=== PATIENT | male | born 1955 | race Hispanic/Latino ===

== ENCOUNTER 2018-10-25 12:54 | Inpatient (IN) | payer OTHER, SELFPAY ==
[2018-10-25 14:12] LABS: Absolute Lymphocytes (CBC) 1.9 K/uL (0.7-4.9); Basophils % 0.4 % (0-1.3); Hematocrit 42.8 % (39.6-49.0); Lymphocytes % 21.2 % (15.3-44.8); MPV 8.7 fL (7.6-11.3); RBC Red Blood Cell Count 4.56 M/uL (4.33-5.43)
[2018-10-25 14:42] LABS: Albumin 2.8 g/dL (3.4-5.0); Bilirubin Total 0.5 mg/dL (0.2-1.0); Potassium 4.5 mmol/L (3.5-5.1); Protein, Total 6.6 g/dL (6.4-8.2)
[2018-10-25] MEDS ORDERED: NA CHLORIDE 0.9% 1,000 ML ONE ×2 (15:07→18:30)
[2018-10-25] MEDS ORDERED: INSULIN -REGULAR HUMAN 50 UNIT/0.5 ML ML ONE (15:31)
--- NOTE | 2018-10-25 15:42 | RAD REPORT ---
EXAM DESCRIPTION: CT - Pelvis W/Cont - 10/25/2018 3:01 pm CLINICAL HISTORY: Rectal abscess, rectal pain, history of rectal abscess COMPARISON: None. TECHNIQUE: Axial 5 millimeter thick images the pelvis were obtained following nonionic IV contrast. The CT scan was performed using dose optimization techniques as appropriate to a performed exam incl uding one or more of the following: Automated exposure control, adjustment of the mA and/or kV accord ing to patient size (this includes techniques or standardized protocols for targeted exams where dose is matched to indication/reason for exam) and use of iterative reconstruction technique. FINDINGS: Along the left lateral margin of the rectum anus junction there are 2 small low-density co llections 5 mm and 7 mm in size. There is a narrow track that runs in the superficial perineum just l eft of midline from the anus anteriorly into the junction of the perineum and posterior scrotum. At t his site there is a 5 centimeter x 4 centimeter abscess. There is thickening of the posterior scrotal wall at the junction with the perineum. This does not fully involved the scrotal sac. No significant edematous/ inflammatory stranding in the fat of the perineum. No extension into the peritoneal or re troperitoneal spaces along the pelvic floor. Prostate gland is enlarged and heterogeneous in enhancement. No clearly defined prostatic mass. CT im aging is very limited regarding prostate mass assessment. No seminal vesicle abnormality. Urinary con dder is unremarkable. Prominent stool volume distends the rectum. There is moderately large stool volume throughout the neal ged portions of the colon. The appendix is normal. Imaged small bowel loops are normal. No peritoneal or retroperitoneal free air or free fluid. No additional inflammatory stranding. IMPRESSION: There is a 5 centimeter abscess in the posterior base of the scrotum at the junction wit h the perineum. A small sinus tract extends along the superficial margin of the perineum slightly left of midline ext ending posteriorly to the rectum venous junction. At the rectal anal junction there are 2 small low-d ensity collections poorly defined measuring 5 mm and 7 mm in size. These are probably small perirecta l abscesses. Patient has history detailed of prior rectal abscess. Age of the scrotal abscess is unknown. This cou ld be a chronic sinus tract extending into the scrotum.
--- NOTE | 2018-10-25 16:03 | EDPHYS ---
Physician Documentation [facility] Name: Sage Guaman Jr Age: 62 yrs Sex: Male : 1955 Arrival Date: 10/25/2018 Time: 12:59 Bed 13 Private MD: ED Physician Jackson Anthony HPI: 10/25 13:27 This 62 yrs old Male presents to ER via Ambulatory with complaints of Abscess. jmm 13:27 the patient presents with a swollen area of the groin. Onset: The symptoms/episode jmm began/occurred gradually, 3 day(s) ago. Possible cause(s): unknown. This is a 62 year old male with a history of dm, htn that presents to the ED with complaints of swelling below his scrotum for the past 3 days. Patient states having swelling similar in the past with drainage but states this episode is increased. Denies fever, denies chills. Historical: - Allergies: 13:04 No Known Allergies; ss - Home Meds: 13:04 none Pt reports he is supposed to be taking medicaiton for diabetes and HTN, but has ss not in a long time [Active]; - PMHx: 13:04 Diabetes - NIDDM; Hypertension; ss - PSHx: 13:04 I\T\D; ss - Immunization history:: Adult Immunizations unknown. - Social history:: Smoking status: Patient uses tobacco products, smokes one pack cigarettes per day. - Ebola Screening: : Patient denies exposure to infectious person Patient denies travel to an Ebola-affected area in the 21 days before illness onset. ROS: 13:27 Constitutional: Negative for fever, chills, and weight loss, Cardiovascular: Negative jmm for chest pain, palpitations, and edema, Respiratory: Negative for shortness of breath, cough, wheezing, and pleuritic chest pain. 13:27 Skin: Positive for abscess. 13:27 All other systems are negative. Exam: 13:27 Constitutional: This is a well developed, well nourished patient who is awake, alert, jmm and in no acute distress. Head/Face: atraumatic. Eyes: EOMI, no conjunctival erythema appreciated ENT: Moist Mucus Membranes Neck: Trachea midline, Supple Chest/axilla: Normal chest wall appearance and motion. Cardiovascular: Regular rate and rhythm. No edema appreciated Respiratory: Normal respirations, no respiratory distress appreciated Abdomen/GI: Non distended, soft 13:27 Skin: ;eft perineal swelling appreciated, area is fluctuant. No surrounding erythema or induration appreciated. 13:27 Neuro: Orientation: is normal, Mentation: is normal, Memory: is normal. 13:27 Psych: Behavior/mood is pleasant, cooperative. Vital Signs: 13:04 BP 137 / 69; Pulse 86; Resp 16; Temp 98.6(TE); Pulse Ox 100% on R/A; Weight 74.84 kg; ss Height 5 ft. 10 in. (177.80 cm); Pain 10/10; 15:30 BP 162 / 78; Pulse 82; Resp 18; Pulse Ox 97% on R/A; aj1 16:30 BP 145 / 72; Pulse 88; Resp 18; Pulse Ox 96% on R/A; aj1 17:48 BP 150 / 74; Pulse 74; Resp 18; Temp 97.3; Pulse Ox 95% on R/A; aj1 13:04 Body Mass Index 23.67 (74.84 kg, 177.80 cm) ss MDM: 13:27 Patient medically screened. [facility] 15:59 Data reviewed: vital signs, nurses notes. Counseling: I had a detailed discussion with nhan the patient and/or guardian regarding: the historical points, exam findings, and any diagnostic results supporting the discharge/admit diagnosis, lab results, radiology results, the need for further work-up and treatment in the hospital, to return to the emergency department if symptoms worsen or persist or if there are any questions or concerns that arise at home. ED course: I discussed the patient with Dr. Zamudio whom accepted admission to Dr. Joiner service. I discussed the patient with Dr. Reinoso whom will consult on the admission. . 10/25 13:35 Order name: CBC with Diff; Complete Time: 14:14 [facility] 10/25 13:35 Order name: CMP; Complete Time: 14:54 [facility] 10/25 13:35 Order name: Procalcitonin; Complete Time: 14:54 [facility] 10/25 13:35 Order name: Blood Culture Adult (2) [facility] 10/25 13:35 Order name: Lactate; Complete Time: 14:54 [facility] 10/25 15:16 Order name: Glucose, Ancillary Testing; Complete Time: 15:16 EDMS 10/25 13:35 Order name: Saline Lock; Complete Time: 14:07 [facility] 10/25 13:35 Order name: CT Pelvis w cont; Complete Time: 15:43 [facility] Administered Medications: Discontinued: Zosyn 3.375 grams IVPB once over 60 mins; (mix in NS 100 mL) 15:20 Drug: NS 0.9% 1000 ml Route: IV; Rate: 1 bolus; Site: right antecubital; [facility] 16:13 Follow up: IV Status: Completed infusion; IV Intake: 1000ml [facility] 15:21 Drug: Insulin Regular Human 5 units {Co-Signature: em (Toni Elizalde LVN).} Route: IVP; [facility] Site: left antecubital; 16:12 Follow up: Response: No adverse reaction; Blood pressure is lowered [facility] 16:12 Drug: Zosyn 3.375 grams Route: IVPB; Infused Over: 60 mins; Site: left antecubital; [facility] 16:18 Follow up: IV Status: Order to discontinue infusion; IV Intake: 5ml [facility] 16:18 Not Given (Physician Discretion): LevaQUIN 750 mg 150 ml IVPB once over 90 mins [facility] Point of Care Testing: Blood Glucose: 15:14 Blood Glucose: 315 mg/dL; dh3 Ranges: Critical Glucose Levels:Adult <50 mg/dl or >400 mg/dl <40 mg/dl or >180 mg/dl Disposition: 10/26 09:48 Co-signature as Attending Physician, Jackson Anthony MD I agree with the assessment and amaya plan of care. Disposition: 10/25/18 16:01 Hospitalization ordered by Anthony Joiner for Observation. Preliminary diagnosis are Perineal Abscess, Perirectal Abscess. - Bed requested for Telemetry/MedSurg (observation). - Status is Observation. aj1 - Condition is Stable. - Problem is new. - Symptoms are unchanged. UTI on Admission? No Signatures: Dispatcher [employer] [facility] Dali Summers RN RN aj1 Jackson Anthony MD MD cha Mickail, Joel, PA PA jmm Smirch, Shelby, RN RN Anthony Pineda RN ANDREW [facility] Toni Elizalde LVN em Corrections: (The following items were deleted from the chart) 07/26 17:13 16:01 Hospitalization Ordered by Anthony Joiner DO for Observation. Preliminary ja1 diagnosis is Perineal Abscess; Perirectal Abscess. Bed requested for Telemetry/MedSurg (observation). Status is Observation. Condition is Stable. Problem is new. Symptoms are unchanged. UTI on Admission? No. jmm 18:04 17:13 10/25/2018 16:01 Hospitalization Ordered by Anthony Joiner DO for Observation. aj1 Preliminary diagnosis is Perineal Abscess; Perirectal Abscess. Bed requested for Telemetry/MedSurg (observation). Status is Observation. Condition is Stable. Problem is new. Symptoms are unchanged. UTI on Admission? No. ja1
--- NOTE | 2018-10-25 16:03 | ER ---
Nurse's Notes [facility] Name: Sage Guaman Jr Age: 62 yrs Sex: Male : 1955 Arrival Date: 10/25/2018 Time: 12:59 Bed 13 Private MD: Diagnosis: Perineal Abscess;Perirectal Abscess Presentation: 10/25 12:58 Presenting complaint: Patient states: abscess to scrotal area that began 3-4 days ago. ss Pt states, "This has happened before, so I know how to take care of it, but this is my third day, and usually it pops by now, but it hasn't so I think it's going in rather than out." Denies fever. Transition of care: patient was not received from another setting of care. Onset of symptoms was October 22, 2018. Risk Assessment: Do you want to hurt yourself or someone else? Patient reports no desire to harm self or others. Initial Sepsis Screen: Does the patient meet any 2 criteria? No. Patient's initial sepsis screen is negative. Does the patient have a suspected source of infection? No. Patient's initial sepsis screen is negative. Care prior to arrival: None. 12:58 Method Of Arrival: Ambulatory ss 12:58 Acuity: MARITZA 3 ss Historical: - Allergies: 13:04 No Known Allergies; ss - Home Meds: 13:04 none Pt reports he is supposed to be taking medicaiton for diabetes and HTN, but has ss not in a long time [Active]; - PMHx: 13:04 Diabetes - NIDDM; Hypertension; ss - PSHx: 13:04 I\\T\\D; ss - Immunization history:: Adult Immunizations unknown. - Social history:: Smoking status: Patient uses tobacco products, smokes one pack cigarettes per day. - Ebola Screening: : Patient denies exposure to infectious person Patient denies travel to an Ebola-affected area in the 21 days before illness onset. Screenin:45 Abuse screen: Denies threats or abuse. Denies injuries from another. Nutritional aj1 screening: No deficits noted. Tuberculosis screening: No symptoms or risk factors identified. 17:52 Fall Risk None identified. aj1 Assessment: 13:45 General: Appears in no apparent distress. uncomfortable, Behavior is calm, cooperative, aj1 appropriate for age. Pain: Complains of pain in scrotum Pain currently is 10 out of 10 on a pain scale. Neuro: Level of Consciousness is awake, alert, obeys commands, Oriented to person, place, time, situation. Cardiovascular: Patient's skin is warm and dry. Respiratory: Airway is patent Respiratory effort is even, unlabored, Respiratory pattern is regular, symmetrical. GI: No signs and/or symptoms were reported involving the gastrointestinal system. : No signs and/or symptoms were reported regarding the genitourinary system. EENT: No signs and/or symptoms were reported regarding the EENT system. Derm: Abscess located on scrotum. Musculoskeletal: No signs and/or symptoms reported regarding the musculoskeletal system. Circulation, motion, and sensation intact. 14:45 Reassessment: Patient appears in no apparent distress at this time. No changes from aj1 previously documented assessment. Patient and/or family updated on plan of care and expected duration. Pain level reassessed. Patient is alert, oriented x 3, equal unlabored respirations, skin warm/dry/pink. 15:45 Reassessment: Patient and/or family updated on plan of care and expected duration. Pain aj1 level reassessed. General: Appears in no apparent distress. comfortable, Behavior is calm, cooperative, appropriate for age. Neuro: Level of Consciousness is awake, alert, obeys commands, Oriented to person, place, time, situation. Cardiovascular: Patient's skin is warm and dry. Respiratory: Airway is patent Respiratory effort is even, unlabored, Respiratory pattern is regular, symmetrical. Musculoskeletal: No signs and/or symptoms reported regarding the musculoskeletal system. Circulation, motion, and sensation intact. 16:45 Reassessment: Patient appears in no apparent distress at this time. No changes from aj1 previously documented assessment. Patient and/or family updated on plan of care and expected duration. Pain level reassessed. Patient is alert, oriented x 3, equal unlabored respirations, skin warm/dry/pink. 17:45 Reassessment: Patient appears in no apparent distress at this time. No changes from aj1 previously documented assessment. Patient and/or family updated on plan of care and expected duration. Pain level reassessed. Patient is alert, oriented x 3, equal unlabored respirations, skin warm/dry/pink. Vital Signs: 13:04 BP 137 / 69; Pulse 86; Resp 16; Temp 98.6(TE); Pulse Ox 100% on R/A; Weight 74.84 kg; Height 5 ft. 10 in. (177.80 cm); Pain 10/10; 15:30 BP 162 / 78; Pulse 82; Resp 18; Pulse Ox 97% on R/A; aj1 16:30 BP 145 / 72; Pulse 88; Resp 18; Pulse Ox 96% on R/A; aj1 17:48 BP 150 / 74; Pulse 74; Resp 18; Temp 97.3; Pulse Ox 95% on R/A; aj1 13:04 Body Mass Index 23.67 (74.84 kg, 177.80 cm) ED Course: 12:59 Patient arrived in ED. as 13:01 Triage completed. 13:04 Arm band placed on left wrist. 13:12 Dali Summers, ANDREW is Primary Nurse. 1 13:20 Cedrick Barragan PA is PHCP. [facility] 13:20 Jackson Anthony MD is Attending Physician. [facility] 13:48 Patient has correct armband on for positive identification. aj1 13:48 No provider procedures requiring assistance completed. aj1 14:00 Initial lab(s) drawn, by vt, sent to lab. First set of blood cultures drawn by vt. 3 Inserted saline lock: 20 gauge in right forearm, using aseptic technique. Blood collected. 14:15 Second set of blood cultures drawn by vt. 3 15:03 CT Pelvis w cont In Process Unspecified. EDMS 16:00 Anthony Joiner DO is Hospitalizing Provider. [facility] 17:52 Patient admitted, IV remains in place. aj1 17:53 Report given to ANDREW Valadez on 2nd floor. aj1 Administered Medications: Discontinued: Zosyn 3.375 grams IVPB once over 60 mins; (mix in NS 100 mL) 15:20 Drug: NS 0.9% 1000 ml Route: IV; Rate: 1 bolus; Site: right antecubital; aj1 16:13 Follow up: IV Status: Completed infusion; IV Intake: 1000ml aj1 15:21 Drug: Insulin Regular Human 5 units {Co-Signature: em (Toni Elizalde LVN).} Route: IVP; [facility] Site: left antecubital; 16:12 Follow up: Response: No adverse reaction; Blood pressure is lowered aj1 16:12 Drug: Zosyn 3.375 grams Route: IVPB; Infused Over: 60 mins; Site: left antecubital; aj1 16:18 Follow up: IV Status: Order to discontinue infusion; IV Intake: 5ml aj1 16:18 Not Given (Physician Discretion): LevaQUIN 750 mg 150 ml IVPB once over 90 mins aj Point of Care Testing: Blood Glucose: 15:14 Blood Glucose: 315 mg/dL; 3 Ranges: Intake: 16:13 IV: 1000ml; Total: 1000ml. aj1 16:18 IV: 5ml; Total: 1005ml. aj1 Outcome: 16:01 Decision to Hospitalize by Provider. nhan 17:53 Admitted to Med/surg accompanied by tech, via stretcher, with chart. [facility] 17:53 Condition: good 17:53 Discharge instructions given to patient, Instructed on the need for admit. 18:04 Patient left the ED. aj Signatures: Dispatcher [employer] Dali Cole RN RN [facility] Cedrick Barragan PA PA jmm Martinez, Amelia as Smirch, Shelby, Katharine Hadley RN count includes the [facility] Toni Elizalde BACTERIOLOGIST MEDICAL
[2018-10-25] MEDS ORDERED: Levofloxacin 750mg IV 750 MG/150 ML BAG IV ONE (16:24)
[2018-10-25] MEDS ORDERED: PIPER/TAZO/NS 3.375gm 3.375 GM/100 ML BAG ONE (16:24)
--- NOTE | 2018-10-25 16:59 | P.HP ---
Certification for Inpatient Patient admitted to: Inpatient With expected LOS: >2 Midnights Patient will require the following post-hospital care: Home Health Services Practitioner: I am a practitioner with admitting privileges, knowledge of patient current condition, hospital course, and medical plan of care. Services: Services provided to patient in accordance with Admission requirements found in Title 42 Section 412.3 of the Code of Federal Regulations Patient History Date of Service: 10/25/18 Primary Care Provider: None Reason for admission: Perirectal abscess History of Present Illness: 62-year-old male presented to emergency room with worsening Perianal and perirectal abscesses. Patient with history of diabetes mellitus type 2, [id number] and tobacco abuse. Patient reports swelling, pain and erythema to the left perianal region. Patient with history of abscess to the area. He had it debrided multiple years ago. He was not able to get it under control with topical agents. He came to the ER for further evaluation. In the ER patient evaluated. White count 9.1, hemoglobin 14.2. Platelet count 219. Sodium 137, potassium 4.5. BUN of 16, creatinine 1.0 with a GFR 73. Glucose elevated at 476. Lactic acid 2.4, pro calcitonin negative. CT scan revealed 5 cm abscess in the posterior base of the scrotum at the junction of the perineum. A small sinus tract extends along the superficial margin of the perineum slightly left of midline extending posteriorly to the rectum venous the junction. At the rectal anal junction there is 2 small low density collections poorly defined measuring 5 mm and 7 mm in size. These are likely small perirectal abscesses. Patient was started on antibiotic therapy. Patient admitted for further evaluation and treatment. ER has contacted surgery. When I saw all the patient ER, he appeared stable. Pain under control. Allergies No Known Allergies Allergy (Verified 02/14/12 01:59) Home medications list reviewed: Yes Home Medications: Lisinopril 5 mg PO DAILY 02/14/12 Sitagliptin Phosphate [Januvia] 100 mg PO DAILY 02/14/12 Ciprofloxacin HCl [Cipro] 500 mg PO Q12H #14 tablet 02/17/12 Glimepiride 2 mg PO BID #60 tablet 02/17/12 Hydrocodone/Acetaminophen [Vicodin 5-500 Tablet] 1 - 2 each PO Q4HP PRN #40 tablet 11/17/12 Metformin HCl 500 mg PO BID #60 tablet 02/17/12 - Past Medical/Surgical History Diabetic: Yes -: Diabetes mellitus type 2, non-insulin dependent -: Tobacco abuse -: I and D of rectal abscess -: Surgery to the right hand Psychosocial/ Personal History: Patient is . Patient lives with son. He is originally from [place]. - Family History Family History: Reviewed- Non-Contributory - Social History Smoking Status: Heavy Tobacco smoker (>10 cigarettes/day) Counseled patient to stop smoking for: less than 10 minutes Smoking therapy provided: Yes Patient receptive to therapy: Yes Alcohol use: Yes CD- Drugs: No Caffeine use: Yes Place of Residence: Home Review of Systems General: As per HPI Eyes: Unremarkable ENT: Unremarkable Respiratory: Unremarkable Cardiovascular: Unremarkable Gastrointestinal: Unremarkable Genitourinary: As per HPI Musculoskeletal: As per HPI Integumentary: As per HPI Neurological: Unremarkable Lymphatics: Unremarkable Physical Examination - Physical Exam General: Alert, In no apparent distress, Oriented x3, Cooperative HEENT: Atraumatic, Normocephalic, PERRLA, Mucous membr. moist/pink Neck: Supple, No Thyromegaly Respiratory: Clear to auscultation bilaterally, Normal air movement Cardiovascular: Normal pulses, Regular rate/rhythm Gastrointestinal: Normal bowel sounds, Soft and benign, Non-distended, No tenderness, No masses, No rebound, No guarding Musculoskeletal: No erythema, No tenderness, No warmth Integumentary: Other (5 cm abscess to the posterior base of the scrotum at the junction with the perineum. Area is slightly erythematous. Pain with palpation noted. Induration noted.) Neurological: Normal speech, Normal strength at 5/5 x4 extr, Normal tone, Normal affect - Studies Laboratory Data (last 24 hrs) 10/25/18 14:00: Sodium 137, Potassium 4.5, BUN 16, Creatinine 1.03, Glucose 476 H*, Total Bilirubin 0.5, AST 6 L, ALT 12, Alkaline Phosphatase 123 H 10/25/18 14:00: WBC 9.1, Hgb 14.2, Hct 42.8, Plt Count 219 Assessment and Plan - Plan Impression: 5 cm abscess to the posterior base of the scrotum at the junction of the perineum along with 2 small perirectal abscesses at the rectal anal junction measuring 5 mm and 7 mm Diabetes mellitus type 2, non-insulin dependent, uncontrolled with hyperglycemia Tobacco abuse Plan: 5 cm abscess to the posterior base of the scrotum at the junction of the perineum along with 2 small perirectal abscesses at the rectal anal junction measuring 5 mm and 7 mm: Patient will be admitted for further evaluation and treatment. Will start IV antibiotic therapy with vancomycin and cefepime. Will have pharmacy monitor and adjust medication. Surgery consulted. Case discussed with surgery. Will keep the patient NPO after midnight as patient will require surgical intervention. Will provide medication for pain will start DVT prophylaxis-Lovenox. Continue with current treatment at this time. Anticipate discharge in the next 2-3 days pending clinical improvement. Patient and family will need to be taught wound care prior to discharge. Anticipate need for home health at discharge. Diabetes mellitus type 2, non-insulin dependent, uncontrolled with hyperglycemia : Will check A1c. Will monitor Accu-Cheks. Will provide sliding scale. Will start basal insulin-Lantus 20 units subcu twice daily for better diabetic control. Restart home medication of metformin. Will need to adjust medication appropriately for better diabetic control. Tobacco abuse: Continue with cessation education. Will provide nicotine patch as needed. Discharge Plan: Home Plan to discharge in: 72 Hours - Advance Directives Does patient have a Living Will: No Does patient have a Durable POA for Healthcare: No - Code Status/Comfort Care Code Status Assessed: Yes (Patient is full code) Time Spent Managing Pts Care (In Minutes): 55
[2018-10-25] MEDS: NA CHLORIDE 0.9% 1,000 ML IV SCH (17:50)
[2018-10-25] MEDS ORDERED: D50W 25 GM/50 ML SYRINGE IV PRN (18:07)
[2018-10-25] MEDS ORDERED: TRAMADOL HCL 50 MG TAB PO PRN (18:07)
[2018-10-25] MEDS ORDERED: GLUCAGON 1 MG/VIAL IM PRN (18:07)
[2018-10-25] MEDS ORDERED: ONDANSETRON 4 MG/2 ML VIAL IV PRN (18:07)
[2018-10-25] MEDS ORDERED: ACETAMINOPHEN 500 MG TAB PO PRN (18:07)
[2018-10-25] MEDS: METFORMIN HCL 500 MG TAB PO SCH (18:29)
[2018-10-25] MEDS: NICOTINE 21 MG/PAT TD SCH (18:58)
[2018-10-25 20:46] LABS: Urine Appearance CLEAR; Urine Bilirubin NEGATIVE (NEG); Urine Blood TRACE (NEG); Urine Color YELLOW; Urine Glucose 3+ (NEG); Urine Protein NEGATIVE (NEG); Urine Specific Gravity >=1.030 (1.005-1.030); Urine pH 6.5 (5.0-7.0)
[2018-10-25 20:55] LABS: Urine Microscopic Reflex ORDER UMIC
[2018-10-25 20:58] LABS: Urine Bacteria NONE SEEN /HPF (NONE SEEN); Urine Culture Reflex Order NOT NEEDED; Urine RBC <5 /HPF (NONE SEEN)
[2018-10-25] MEDS ORDERED: CEFEPIME 1 GM/VIAL IV SCH (21:00)
[2018-10-25] MEDS ORDERED: VANCOMYCIN 1.25 GM in NA CHLORIDE 0.9% 250 ML IVPB SCH (21:00)
[2018-10-25] MEDS: CEFEPIME/SWI 1gm 10 ML IV SCH (21:17)
[2018-10-25] MEDS: INSULIN -REGULAR HUMAN 50 UNIT/0.5 ML ML SQ SCH (21:21)
[2018-10-25] MEDS: ENOXAPARIN 40 MG/0.4 ML SQ SCH (21:22)
[2018-10-25] MEDS: INSULIN GLARGINE 100 UNITS/ML SQ SCH (21:22)
[2018-10-25] MEDS: HYDROCODONE/APAP 7.5/325 MG TAB PO PRN (21:24)
[2018-10-26] MEDS: NA CHLORIDE 0.9% 1,000 ML IV SCH ×3 (03:07→20:03)
[2018-10-26 04:59] LABS: Absolute Lymphocytes (CBC) 3.1 K/uL (0.7-4.9); Basophils % 0.9 % (0-1.3); Hematocrit 39.6 % (39.6-49.0); Lymphocytes % 30.7 % (15.3-44.8); MPV 8.4 fL (7.6-11.3); RBC Red Blood Cell Count 4.19 M/uL (4.33-5.43)
[2018-10-26 05:17] LABS: BUN Blood Urea Nitrogen 15 mg/dL (7-18); Bicarbonate 27 mmol/L (21-32); Glucose Level 165 mg/dL (74-106); Magnesium 1.8 mg/dL (1.8-2.4); Potassium 3.8 mmol/L (3.5-5.1); Sodium Level 141 mmol/L (136-145)
[2018-10-26] MEDS ORDERED: POTASSIUM CL SA 10 MEQ TAB PO ONE (06:30)
[2018-10-26] MEDS ORDERED: KCL 20 MEQ/100 mL IVPB 20 MEQ/100 ML BAG IV SCH (07:00)
[2018-10-26] MEDS: INSULIN -REGULAR HUMAN 50 UNIT/0.5 ML ML SQ SCH ×4 (07:30→20:04)
[2018-10-26] MEDS: METFORMIN HCL 500 MG TAB PO SCH ×2 (08:00→16:20)
[2018-10-26] MEDS: ENOXAPARIN 40 MG/0.4 ML SQ SCH (09:00)
[2018-10-26] MEDS: NICOTINE 21 MG/PAT TD SCH ×2 (09:00→11:54)
[2018-10-26] MEDS: CEFEPIME/SWI 1gm 10 ML IV SCH ×2 (09:07→20:04)
[2018-10-26] MEDS: INSULIN GLARGINE 100 UNITS/ML SQ SCH ×2 (09:08→20:04)
[2018-10-26] MEDS ORDERED: FENTANYL CITR 100 MCG/2 ML ONE (10:07)
[2018-10-26] MEDS ORDERED: PROPOFOL 200 MG/20 ML VIAL IV ONE (10:07)
[2018-10-26] MEDS ORDERED: MIDAZOLAM HCL 2 MG/2 ML INJ ONE (10:07)
[2018-10-26] MEDS ORDERED: ONDANSETRON 4 MG/2 ML VIAL ONE (10:07)
[2018-10-26] MEDS ORDERED: LIDOCAINE 1% MPF 5 ML VIAL ONE (10:07)
[2018-10-26] MEDS ORDERED: KETOROLAC 30 MG/ML INJ ONE (10:08)
[2018-10-26] MEDS ORDERED: NA CHLORIDE 0.9% 1,000 ML ONE (10:45)
--- NOTE | 2018-10-26 10:49 | P.BOP ---
Preoperative diagnosis: Perirectal.Perianal,Perineal abscess Postoperative diagnosis: same Primary procedure: EUA, ANoscopy, rigid proctoscopy, Secondary procedure: incision and drainage of perirectal abscess 12x5 cm Estimated blood loss: <10cc Specimen: pus and tissue Findings: pus Anesthesia: General Transferred to: Recovery Room Condition: Good
[2018-10-26] MEDS: HYDROCODONE/APAP 7.5/325 MG TAB PO PRN ×2 (11:53→22:02)
[2018-10-26] MEDS: VANCOMYCIN 1.25 GM in NA CHLORIDE 0.9% 250 ML IVPB SCH ×2 (12:29→20:03)
--- NOTE | 2018-10-26 12:56 | CON ---
Date of Consultation: 10/26/2018 Diagnoses: Perianal and perineal abscess. History Of Present Illness: This is the case of a 62-year-old patient, who came to us with a periana l and perineal bulging tenderness. He has history of diabetes, has history of abscess in that area b efore, we never found the reason for it. He states it just happened on its own. He does not remembe r any trauma. Does not remember any constipation, any dysuria, hematochezia, or melena. Patient mauro s not remember his previous colonoscopy, although he was advised to do so. Review of Systems: Ten points otherwise unremarkable. Allergies: NONE. Medications: 1.Lisinopril. 2.Januvia. 3.Cipro. 4.Glimepiride. 5.Vicodin. 6.Metformin. Although, he admitted not been really taking them all the time. Past Surgical History: Right hand surgery, I and D of rectal and perineal abscess before. Family History: Noncontributory. Social History: Patient smokes 10 cigarettes a day. He does not drink alcohol. Patient advised smo sabina cessation. Physical Examination: General: Patient is awake and alert. HEENT: Pupils are equal and reactive, anicteric. Neck: Supple. Chest: Clear. Abdomen: Soft and depressible. No guarding or rebound. The area of the perineum and perianal regio n is tender with bulging present. Cannot be examined here on bedside, thus we are going to do examin ation under anesthesia. The area of the base of the scrotum partially involved with this, although t he scrotum itself does not seem to be involved. Rectal: Deferred by the patient due to discomfort. Extremities: Good capillary refill. Laboratory Data: WBC count is 10.2, hemoglobin of 13.6, and platelets of 204. Potassium of 3.8 and creatinine is 0.65. CAT scan of the pelvis interpreted by Dr. Barertt as a 5-cm abscess in the poste rior base of the scrotum and the junction with the perineum. Small sinus tracking continues through the perineum is slightly in the midline near the area of the rectal anal junction. Assessment: A 62-year-old patient with perirectal, perianal, and perineal abscess. Etiology of that is unknown. He was advised the importance of avoiding trauma, getting his diabetes under control. Etiology of the abscess is hard to say. I am not sure exactly whether this is coming from the anus o r the rectum and go anteriorly or the opposite. At this moment, it is difficult to say, but we have to drain the pus from that area. The benefits, alternatives, and risks of EUA, anoscopy, proctoscopy , and incision and drainage of perianal, perirectal, and perineal abscess fully explained to the arslan ent, which include but are not limited to infection, bleeding, damage to adjacent structures as compl ication, recurrence, GA, and even . He also understands this may not relieve the symptoms. He might need more than one surgical intervention and he will require wound care. BENITEZ/SAMEERA Voice ID: [id number] Report ID: [id number]
--- NOTE | 2018-10-26 13:11 | PN ---
Date of Progress Note: 10/26/2018 Subjective: The patient seen and examined. Chart reviewed and case discussed with RN. The patient states his pain is better controlled. He is currently n.p.o. in anticipation of surgery. Medications: List reviewed. Physical Examination: Vital Signs: Temperature 98.9, heart rate 69, blood pressure 153/74, respirations 20, O2 of 99% on r oom air. General: Awake, alert, oriented x3. Elderly male, somewhat ill appearing. CV: S1, S2. No murmurs. Peripheral pulses present. Respiratory: Moving air well bilaterally. No wheezing. Gastrointestinal: Abdomen is soft, nontender, nondistended. Positive bowel sounds. Extremities: No clubbing, cyanosis, or edema. Neurologic: Nonfocal. Skin: The patient has abscess in the perineum close to the scrotum around the left. Tenderness to p alpation. Laboratory Data: Sodium 141, potassium 3.8, chloride 108, CO2 of 27, BUN 15, creatinine 0.65, glucos e 165, calcium 7.8, magnesium 1.8. WBC 10.2, H and H of 13.6 and 39.6, platelets 202. Assessment: A 62-year-old male with: 1.Perineal abscess. The patient has multiple abscesses along the base of the scrotum, perineum, and the rectoanal junction. The patient is going for surgery today by Dr. Reinoso. Continue with IV a ntibiotics. Follow up on cultures. The patient will likely need wound care postop and at home. 2.Diabetes mellitus type 2, non-insulin dependent, with hyperglycemia. Hemoglobin A1c pending. We will continue home dose of insulin, which has been adjusted, and sliding scale as needed. The patien t has been counseled regarding tight control of his diabetes to help heal the wound quicker postopera tively. 3.Nicotine dependence with cigarette smoking, continuous. The patient has been counseled. Plan: Anticipate surgery. Discharge once clinically improved in the next 24 to 48 hours postop. Wi ll need to set up home health with wound care. SA/MODL Voice ID: [id number] Report ID: [id number]
[2018-10-26] MEDS ORDERED: MAGNESIUM SULFATE 1 gm IVPB 1 GM/100 ML BAG IV ONE (16:30)
[2018-10-26 17:57] VITALS: BMI 20.7
--- NOTE | 2018-10-26 21:10 | OP ---
Date of Procedure: 10/26/2018 Surgeon: Neno Reinoso MD Postoperative Diagnoses: Perianal, perirectal, and perineal abscess; diabetes. Postoperative Diagnoses: Perianal, perirectal, and perineal abscess; diabetes. Procedures: Examination under anesthesia, anoscopy, rigid proctoscopy, incision and drainage of concepcion rectal abscess. It is 12 x 5 cm. Anesthesia: General plus local. Indications: This is a case of a 62-year-old patient, who comes to us with perineal bulging with CAT scan finding multiple abscesses, large. The patient was fully explained the benefits and risks of a nina procedure, which include but are not limited to infection, bleeding, damage to adjacent structur es as complication, anal stricture, anal incontinence, bowel perforation, recurrence, AK, and even de ath. He also understands this may not relieve the symptoms. He might need more than one surgical in tervention. He understood, signed a consent. He understands he will need wound care. He signed a c onsent. Description Of Procedure: The patient was brought to the operating room, placed in supine position. Anesthesia was given without complication. Perineal area was prepped and draped in the usual steril e fashion after placing the patient in lithotomy position. A time-out was called. The patient had m ultiple areas that looked like scarring from the past. I am not sure if this was just part of a fistu la or just hydradenitis or any other pathology, but the abscesses were large at that moment with foul smelling purulent discharge that was hard for us to find the etiology of this. Endoscopy was done a fter a rectal examination. We could not see any specific fistula, although we noticed the patient to have perirectal and perianal that connected to the perineal abscess and when put all this together, they were about 12 x 5 cm extensions and they connect each other. Re-proctoscopy did not show once a gain more than about 7 cm, since before that patient had too much stool for us to even identify anyth ing that may be connected to this. An incision was made over the perineal and perianal region to anthony in the perirectal abscess, perineal abscess, and the perianal abscess. Once again, they connected un derneath, there was foul purulent discharge, although the tissue underneath seemed to be healthy. Al l of the necrotic tissue was removed. The area was irrigated. Cultures were done, packed with iodof orm packing. The patient tolerated the procedure well. After putting local anesthetic, patient was sent to Recovery in stable condition. BENITEZ/SAMEERA Voice ID: [id number] Report ID: [id number]
[2018-10-27 05:04] LABS: Absolute Lymphocytes (CBC) 3.1 K/uL (0.7-4.9); Basophils % 0.3 % (0-1.3); Hematocrit 38.5 % (39.6-49.0); Lymphocytes % 32.1 % (15.3-44.8); MPV 8.3 fL (7.6-11.3); RBC Red Blood Cell Count 4.01 M/uL (4.33-5.43)
[2018-10-27 05:17] LABS: BUN Blood Urea Nitrogen 11 mg/dL (7-18); Bicarbonate 26 mmol/L (21-32); Glucose Level 99 mg/dL (74-106); Potassium 3.7 mmol/L (3.5-5.1); Sodium Level 143 mmol/L (136-145)
[2018-10-27] MEDS: INSULIN -REGULAR HUMAN 50 UNIT/0.5 ML ML SQ SCH ×2 (07:30→12:22)
[2018-10-27] MEDS ORDERED: POTASSIUM CL SA 10 MEQ TAB PO ONE (08:00)
[2018-10-27] MEDS: INSULIN GLARGINE 100 UNITS/ML SQ SCH (09:17)
[2018-10-27] MEDS: ENOXAPARIN 40 MG/0.4 ML SQ SCH (09:17)
[2018-10-27] MEDS: METFORMIN HCL 500 MG TAB PO SCH (09:18)
[2018-10-27] MEDS: CEFEPIME/SWI 1gm 10 ML IV SCH (09:18)
[2018-10-27] MEDS: NICOTINE 21 MG/PAT TD SCH (09:19)
[2018-10-27] MEDS: VANCOMYCIN 1.25 GM in NA CHLORIDE 0.9% 250 ML IVPB SCH (09:19)
[2018-10-27] MEDS: HYDROCODONE/APAP 7.5/325 MG TAB PO PRN (09:21)
[2018-10-27] MEDS: NA CHLORIDE 0.9% 1,000 ML IV SCH (09:23)
[2018-10-27 09:26] VITALS: O2SAT 95
[2018-10-27] MEDS ORDERED: POLYETHYL GLY 3350 17 GM/DOSE PO PRN (09:28)
[2018-10-27] MEDS ORDERED: DOCUSATE NA 100 MG CAP PO SCH (11:00)
[2018-10-27 12:05] VITALS: BP 152/73; TEMP 98.3
--- NOTE | 2018-10-27 13:24 | PN ---
Date of Progress Note: 10/27/2018 Subjective: Patient was seen and examined. Chart reviewed and case discussed with RN. Patient radha rated the procedure well. Pain is improved. Medications: List reviewed. Physical Examination: Vital Signs: Temperature 98.1, heart rate 62, blood pressure 146/65, respirations 16, O2 of 98% on r oom air. General: Awake, alert, oriented x3. No acute distress. CV: S1, S2. No murmurs. Respiratory: Moving air well bilaterally. Gastrointestinal: Abdomen is soft, nontender, nondistended. Extremities: No clubbing, cyanosis, or edema. Neurologic: Nonfocal. Skin: Incision site clean, dry, and intact. Packing in place. Laboratory Data: Sodium 143, potassium 3.7, chloride 110, CO2 of 26, BUN 11, creatinine 0.67, glucos e 99, calcium 7.8, magnesium 2. WBC 9.7, H and H 12.9 and 38.5, platelets 192. Blood cultures, no g rowth to date. Perianal wound growing skin carl. Assessment: A 62-year-old male with: 1.Perianal abscess, status post incision and drainage. We will continue with wound care and IV anti biotics. We will follow up on cultures, no growth to date. We will need to set up wound care at [facility]. 2.Diabetes mellitus type 2, non-insulin dependent with hyperglycemia. We will continue sliding scal e insulin and monitor blood glucose levels. 3.Nicotine dependence with cigarette smoking, continuous. Patient has been counseled. 4.Deep venous thrombosis prophylaxis, Lovenox. Plan: Discharge within the next 24 to 48 hours depending on clinical response and culture results. /SAMEERA Voice ID: [id number] Report ID: [id number]
--- NOTE | 2018-10-29 13:35 | DS ---
Date of Discharge: 10/27/2018 Utilities Service Investigator: Dr. Reinoso, General Surgery. Procedures: On 10/26/2018, perianal, perirectal, perineal abscess. Examination under anesthesia, an oscopy, rigid proctoscopy, incision and drainage of perirectal abscess, 4 x 5 cm. Admitting Diagnoses: 1.Abscess to the perineal and perirectal area. 2.Diabetes mellitus type 2, non-insulin dependent, uncontrolled with hyperglycemia. 3.Nicotine dependence with cigarette smoking. 4.Metabolic acidosis. Discharge Diagnoses: 1.Perianal, perirectal, and perineal abscess, status post incision and drainage, no growth on blood cultures. 2.Diabetes mellitus type 2, uncontrolled with hyperglycemia. 3.Nicotine dependence with cigarette smoking. 4.Metabolic acidosis. Hospital Course: Patient is a 62-year-old male with past medical history of diabetes, comes in with perirectal abscess. Patient has had previous abscess and has required I and D. Patient was started on IV antibiotics. Cultures were obtained, which remained negative to date. Wound cultures are gram -negative rods preliminarily. Patient was taken to the OR by Dr. Reinoso with General Surgery. I a nd D was done and patient did well postoperatively. His white blood cell count remained normal. He was not septic. Procalcitonin was negative. Lactate was initially elevated and normalized with mary tment. He was given IV fluids. UA was negative. Patient was then attempted to be set up with home health; however, he has no resources, unfunded. Family was willing to continue with wound care. Robert rodrigues states that she has done wound care for him previously. He was then cleared for discharge from Dr. Reinoso's standpoint and he was sent home in a stable condition. Activity: As tolerated. Medications: As per medication reconciliation list. Followup: Follow up with primary care physician in 2 to 3 days. Follow up with surgeon, [facility]. Return to ER for worsening condition. Wound care instruct ions per Dr. Reinoso. Diet: Diabetic. For physical exam findings, please see progress note dictated on the day of discharge. Total time spent discharging patient was 32 minutes. SA/MODL Voice ID: [id number] Report ID: [id number]
== END 2018-10-27 16:00 | disposition home or self-care (01) | DRG 345 ==
LOC: ER 12:54 → ERHOLD 16:46 → 2ND 17:40
PROVIDERS: ADMIT Family Medicine; ATTEND Family Medicine
PROC: 0D9P0ZX Drainage of Rectum, Open Approach, Diagnostic (ICD-10-PCS; 2018-10-26)
PROC: 0DJD8ZZ Inspection of Lower Intestinal Tract, Via Natural or Artificial Opening Endoscopic (ICD-10-PCS; principal; 2018-10-26 10:00)
DX: K61.0 Anal abscess (principal); L02.215 Cutaneous abscess of perineum; E87.2 Acidosis; K61.1 Rectal abscess; E11.65 Type 2 diabetes mellitus with hyperglycemia; F17.210 Nicotine dependence, cigarettes, uncomplicated
CPT/HCPCS: 36415; 72193; 80048; 80053; 80202; 81003; 81015; 82962; 83036; 83605; 83735; 84145; 85025; 87040; 87070; 87075; 87077; 87186; 87205; 88304; 96361; 96374; 96375; 99285; J0692; J1650; J2250; J2405; J2543; J2704; J3010; J3475; J7030; Q9967

== ENCOUNTER 2021-04-04 12:15 | Emergency (ER) | payer OTHER ==
[2021-04-04 13:49] LABS: Hematocrit 32.9 % (39.6-49.0); Lymphocytes % 14.1 % (15.3-44.8); MPV 7.3 fL (7.6-11.3); RBC Red Blood Cell Count 3.86 M/uL (4.33-5.43)
[2021-04-04 13:55] LABS: Protime INR 1.2
--- NOTE | 2021-04-04 14:03 | RAD REPORT ---
EXAM DESCRIPTION: RAD - Tib Fib Right - 04/04/2021 1:57 pm CLINICAL HISTORY: PAIN COMPARISON: No comparisons FINDINGS: A above -the-knee amputation is noted. Heavy vascular stenting present. No soft tissue gas or underlying bony abnormality.
--- NOTE | 2021-04-04 14:03 | RAD REPORT ---
EXAM DESCRIPTION: RAD - Chest Single View - 04/04/2021 1:57 pm CLINICAL HISTORY: COUGH Chest pain. COMPARISON: CHEST PA AND LAT 2 VIEW dated 02/13/2012 FINDINGS: Portable technique limits examination quality. The lungs are moderately emphysematous but grossly clear. The heart is normal in size. No displaced f ractures. IMPRESSION: Moderate COPD. The USPSTF recommends annual screening for lung cancer with low-dose CT (LDCT) in adults aged 50 to 80 years who have a 20 pack-year smoking history and currently smoke or have quit within the past 15 years.
[2021-04-04 14:10] LABS: ALT/SGPT 37 U/L (12-78); AST/SGOT 32 U/L (15-37); Alkaline Phosphatase 156 U/L (45-117); BUN Blood Urea Nitrogen 22 mg/dL (7-18); Bicarbonate 23 mmol/L (21-32); Bilirubin Direct < 0.1 mg/dL (0-0.2); Bilirubin Total 0.3 mg/dL (0.2-1.0); Magnesium 1.8 mg/dL (1.8-2.4); NT PRO-BNP 254 pg/mL (<125); Potassium 4.4 mmol/L (3.5-5.1); Protein, Total 7.9 g/dL (6.4-8.2); Sodium Level 132 mmol/L (136-145); Troponin (Emerg Dept Use Only) < 0.02 ng/mL (0.0-0.045)
[2021-04-04 14:12] LABS: Glucose Level 46 mg/dL (74-106)
[2021-04-04] MEDS ORDERED: NA CHLORIDE 0.9% 100 ML ONE (14:52)
[2021-04-04] MEDS ORDERED: PIPERACIL/TAZO 3.375 GM VIAL IV ONE (14:52)
[2021-04-04] MEDS ORDERED: D50W 50 ML IV ONE (14:53)
[2021-04-04] MEDS ORDERED: NA CHLORIDE 0.9% 2,000 ML ONE (14:53)
[2021-04-04] MEDS ORDERED: VANCOMYCIN 1 GM in NA CHLORIDE 0.9% 250 ML IVPB ONE (15:00)
[2021-04-04 15:07] LABS: SARS-COV-2 RT PCR POSITIVE (NEGATIVE)
[2021-04-04] MEDS ORDERED: VANCOMYCIN 1 GM/VIAL ONE (15:11)
[2021-04-04] MEDS ORDERED: NA CHLORIDE 0.9% 250 ML ONE (15:11)
--- NOTE | 2021-04-04 15:20 | EDPHYS ---
Physician Documentation [facility] Name: Sage Guaman Jr Age: 65 yrs Sex: Male : 1955 Arrival Date: 04/04/2021 Time: 12:22 Bed 17 Private MD: MIRTHA Physician Jackson Anthony HPI: 04/04 15:09 This 65 yrs old Male presents to ER via EMS with complaints of Post Surgical amaya Pain. 15:09 The patient presents with a deformity, an injury, pain, that is acute. The complaints amaya affect the lateral aspect of right thigh, right hamstring, medial aspect of right thigh and right quadriceps. Context: The problem was sustained at an unknown site. Onset: The symptoms/episode began/occurred 6 week(s) ago. Modifying factors: The symptoms are alleviated by nothing. the symptoms are aggravated by movement. Treatment prior to arrival includes: no previous treatment. Severity of symptoms: At their worst the symptoms were mild, moderate, in the emergency department the symptoms are actually worse, moderately. The patient has experienced similar episodes in the past, multiple times. Historical: - Allergies: 12:26 No Known Allergies; bp - Home Meds: 12:26 ascorbic acid (vitamin C) 500 mg tab 1 tab twice a day [Active]; aspirin 81 mg Oral bp TbEC 1 tab once daily [Active]; atorvastatin 40 mg oral tab 1 tab once daily [Active]; Bactrim DS 800-160 mg Oral tab 1 tab every 12 hours [Active]; chlorthalidone 25 mg Oral tab 0.5 tab once daily [Active]; cyanocobalamin (vitamin B-12) 500 mcg oral tab 1 tab daily [Active]; docusate sodium 100 mg Oral cap 1 cap once daily [Active]; gabapentin 400 mg oral cap 1 cap 3 times per day [Active]; glipizide 10 mg Oral tab 1 tab once daily [Active]; lactulose 20 gram/30 mL Oral soln 30 mL once daily [Active]; Lantus U-100 Insulin 100 unit/mL subcutaneous soln 10 unit daily [Active]; lisinopril 20 mg Oral tab 1 tab once daily [Active]; metformin 1,000 mg Oral tr24 1 tab 2 times per day [Active]; - PMHx: 12:26 Diabetes - NIDDM; Hypertension; Depressive disorder; Hypercholesterolemia; bp - PSHx: 12:26 Amputated below knee; RIGHT; bp - Immunization history:: Adult Immunizations up to date, Client reports receiving the 2nd dose of the Covid vaccine. - Social history:: Smoking status: Patient denies any tobacco usage or history of. - Family history:: not pertinent. ROS: 15:09 Constitutional: Negative for fever, chills, and weight loss, Eyes: Negative for injury, amaya pain, redness, and discharge, ENT: Negative for injury, pain, and discharge, Neck: Negative for injury, pain, and swelling, Cardiovascular: Negative for chest pain, palpitations, and edema, Respiratory: Negative for shortness of breath, cough, wheezing, and pleuritic chest pain, Abdomen/GI: Negative for abdominal pain, nausea, vomiting, diarrhea, and constipation, Back: Negative for injury and pain, : Negative for injury, bleeding, discharge, and swelling, Skin: Negative for injury, rash, and discoloration, Neuro: Negative for headache, weakness, numbness, tingling, and seizure, Psych: Negative for depression, anxiety, suicide ideation, homicidal ideation, and hallucinations, Allergy/Immunology: Negative for hives, rash, and allergies, Endocrine: Negative for neck swelling, polydipsia, polyuria, polyphagia, and marked weight changes, Hematologic/Lymphatic: Negative for swollen nodes, abnormal bleeding, and unusual bruising. 15:09 : Positive for 15:09 MS/extremity: Positive for decreased range of motion, erythema, pain, swelling, tenderness, of the lateral aspect of right thigh, right hamstring, medial aspect of right thigh and right quadriceps. Exam: 15:09 Constitutional: This is a well developed, well nourished patient who is awake, alert, amaya and in no acute distress. Head/Face: Normocephalic, atraumatic. Eyes: Pupils equal round and reactive to light, extra-ocular motions intact. Lids and lashes normal. Conjunctiva and sclera are non-icteric and not injected. Cornea within normal limits. Periorbital areas with no swelling, redness, or edema. ENT: Nares patent. No nasal discharge, no septal abnormalities noted. Tympanic membranes are normal and external auditory canals are clear. Oropharynx with no redness, swelling, or masses, exudates, or evidence of obstruction, uvula midline. Mucous membranes moist. Neck: Trachea midline, no thyromegaly or masses palpated, and no cervical lymphadenopathy. Supple, full range of motion without nuchal rigidity, or vertebral point tenderness. No Meningismus. Chest/axilla: Normal chest wall appearance and motion. Nontender with no deformity. No lesions are appreciated. Cardiovascular: Regular rate and rhythm with a normal S1 and S2. No gallops, murmurs, or rubs. Normal PMI, no JVD. No pulse deficits. Respiratory: Lungs have equal breath sounds bilaterally, clear to auscultation and percussion. No rales, rhonchi or wheezes noted. No increased work of breathing, no retractions or nasal flaring. Abdomen/GI: Soft, non-tender, with normal bowel sounds. No distension or tympany. No guarding or rebound. No evidence of tenderness throughout. Back: No spinal tenderness. No costovertebral tenderness. Full range of motion. Male : Normal genitalia with no discharge or lesions. Skin: Warm, dry with normal turgor. Normal color with no rashes, no lesions, and no evidence of cellulitis. Neuro: Awake and alert, GCS 15, oriented to person, place, time, and situation. Cranial nerves II-XII grossly intact. Motor strength 5/5 in all extremities. Sensory grossly intact. Cerebellar exam normal. Normal gait. Psych: Awake, alert, with orientation to person, place and time. Behavior, mood, and affect are within normal limits. 15:09 Musculoskeletal/extremity: Extremities: grossly normal except: pain, swelling, tenderness, ROM: full active range of motion, full passive range of motion, Circulation is intact in all extremities. Sensation intact. DVT Exam: negative Homans' sign noted on exam, no appreciated bluish discoloration, pain, swelling, tenderness, erythema, increased warmth, that is moderate, of the right leg, of the lateral aspect of right thigh, right hamstring, medial aspect of right thigh and right quadriceps. 15:09 Skin: cellulitis, that is mild, that is moderate, induration, that is moderate is noted, located on the lateral aspect of right thigh, right hamstring, medial aspect of right thigh and right quadriceps, Other necrosis on distal stump. 15:09 Psych: Exam negative for acute changes, hallucinations, delusions, inappropriate behavior, psychosis, paranoia, exam not indicated, Behavior/mood is pleasant, Affect is calm, Not oriented to Patient has no thoughts/intents to harm self or others. Judgement / Insight is normal. 15:21 ECG was reviewed by the Attending Physician. [facility] Vital Signs: 12:22 BP 118 / 74; Pulse 88; Resp 16; Temp 98; Pulse Ox 99% ; Weight 68.04 kg; Height 5 ft. bp 10 in. (177.80 cm); 14:00 BP 104 / 65; Pulse 82; Resp 16; Pulse Ox 100% ; bp 12:22 Body Mass Index 21.52 (68.04 kg, 177.80 cm) bp NIH Stroke Scale Scores: 15:09 NIHSS Score: 0 amaya MDM: 12:28 Patient medically screened. [facility] 15:20 Differential diagnosis: contusion, tendonitis. Data reviewed: vital signs, nurses [facility] notes, lab test result(s), EKG, radiologic studies, plain films. Data interpreted: traffic monitor specialist: rate is 82 beats/min, rhythm is regular, Pulse oximetry: on room air is 100 %. Test interpretation: by ED physician or midlevel provider: ECG, plain radiologic studies. Counseling: I had a detailed discussion with the patient and/or guardian regarding: the historical points, exam findings, and any diagnostic results supporting the discharge/admit diagnosis, lab results, radiology results, the need to transfer to another facility, for higher level of care, [facility] does not immediately have the required specialist. 04/04 12:47 Order name: Basic Metabolic Panel [facility] 04/04 12:47 Order name: CBC with Diff; Complete Time: 14:28 [facility] 04/04 12:47 Order name: LFT's; Complete Time: 14:28 [facility] 04/04 12:47 Order name: Magnesium; Complete Time: 14:28 [facility] 04/04 12:47 Order name: NT PRO-BNP; Complete Time: 14:28 [facility] 04/04 12:47 Order name: PT-INR; Complete Time: 14:28 [facility] 04/04 12:47 Order name: Troponin (emerg Dept Use Only); Complete Time: 14:28 [facility] 04/04 12:47 Order name: Blood Culture Adult (2) [facility] 04/04 12:47 Order name: Lactate; Complete Time: 14:28 [facility] 04/04 12:47 Order name: Procalcitonin; Complete Time: 14:28 [facility] 04/04 12:47 Order name: COVID-19/FLU A+B/RSV (Document "Date of Onset" if Symptomatic); Complete amaya Time: 15:04/04 12:47 Order name: Basic Metabolic Panel; Complete Time: 14:28 EDMS 04/04 14:27 Order name: Glucose, Ancillary Testing; Complete Time: 15:04 EDMS 04/04 15:12 Order name: Glucose, Ancillary Testing; Complete Time: 15: EDID 04/04 12:47 Order name: XRAY Chest (1 view); Complete Time: 14:28 [facility] 04/04 12:47 Order name: EKG; Complete Time: 12:48 [facility] 04/04 12:47 Order name: Cardiac monitoring; Complete Time: 13:36 [facility] 04/04 12:47 Order name: EKG - Nurse/Tech; Complete Time: 13:36 [facility] 04/04 12:47 Order name: IV Saline Lock; Complete Time: 13:36 [facility] 04/04 12:47 Order name: Labs collected and sent; Complete Time: 13:36 [facility] 04/04 12:47 Order name: O2 Per Protocol; Complete Time: 13:36 [facility] 04/04 12:47 Order name: O2 Sat Monitoring; Complete Time: 13:36 [facility] 04/04 12:47 Order name: Tib Fib Right XRAY; Complete Time: 14:28 [facility] 04/04 16:42 Order name: Glucose, Ancillary Testing EDMS EC:21 Rate is 80 beats/min. Rhythm is regular. QRS [place] is Normal. CT interval is normal. QRS amaya interval is normal. QT interval is normal. No Q waves. T waves are Normal. No ST changes noted. Clinical impression: NSR w/ Non-specific ST/T Changes and No evidence of ischemia. Interpreted by me. Reviewed by me. Administered Medications: 14:50 Drug: NS 0.9% 1000 ml Route: IV; Rate: 125 ml/hr; Site: right wrist; ww 16:23 Follow up: IV Status: Infusion continued upon transfer bp 15:00 Drug: D50W 50 ml Route: IVP; Site: right forearm; ww 16:23 Follow up: Response: No adverse reaction bp 15:08 Drug: Zosyn (piperacillin-tazobactam) 3.375 grams Route: IVPB; Infused Over: 60 mins; ww Site: right wrist; 16:23 Follow up: IV Status: Completed infusion; IV Intake: 100ml bp 15:17 Drug: vancoMYCIN 1 grams Route: IVPB; Infused Over: 2 hrs; Site: right wrist; ww 16:23 Follow up: IV Status: Completed infusion; IV Intake: 250ml bp Disposition Summary: 04/04/21 15:19 Transfer Ordered Transfer [facility] amaya Reason: Higher level of care amaya Condition: Fair amaya Problem: new amaya Symptoms: have improved amaya Accepting Physician: to ks(04/04/21 17:05) iw Diagnosis - Type 2 diabetes mellitus with diabetic neuropathy, unspecified amaya - Hypoglycemia, unspecified amaya - Cellulitis and acute lymphangitis of other parts of limb - with necrosis, sp amaya amputation - Elevated white blood cell count amaya - Anemia, unspecified amaya - Coronavirus infection, unspecified amaya - COPD/ Chronic obstructive pulmonary disease, unspecified amaya Forms: - Medication Reconciliation Form amaya - SBAR form amaya NIH Stroke Scale - NIH Stroke Score Date: 04/04/2021 Time: 15:09 Total Score = 0 1a. Level of Consciousness (LOC) - 0(Alert) 1b. Level of Consciousness (LOC) (Month \\T\\ Age) - 0(Both) 1c. LOC Commands (Open \\T\\ Closes Eyes/Net Developer) - 0(Both) 2. Best Gaze (Lateral Gaze Paresis) - 0(Normal) 3. Visual Field Loss - 0(No visual loss) 4. Facial Palsy - 0(Normal) 5a. Left Arm: Motor (10-second hold) - 0(No drift) 5b. Right Arm: Motor (10-second hold) - 0(No drift) 6a. Left Leg: Motor (5-second hold - always test supine) - 0(No drift) 6b. Right Leg: Motor (5-second hold - always test supine) - 0(No drift) 7. Limb Ataxia (finger/nose \\T\\ heel/weinstein - test with eyes open) - 0(Absent) 8. Sensory Loss (pinprick arms/legs/face) - 0(Normal) 9. Best Language: Aphasia (description/naming/reading) - 0(No aphasia) 10. Dysarthria (speech clarity - read or repeat words) - 0(Normal) 11. Extinction and Inattention (visual/tactile/auditory/spatial/personal) - 0(No abnormality) Initials: amaya Signatures: Dispatcher [employer] Jackson Rossi MD MD cha Williams, Irene, RN Joe Hooper RN RN bp Wood, Whitney, RN RN ww Corrections: (The following items were deleted from the chart) 12:48 12:26 Home Meds: none Pt reports he is supposed to be taking medicaiton for bp diabetes and HTN, but has not in a long time; bp 15:21 15:19 to [place] amaya amaya 15:35 15:21 to va amaya amaya 17:05 15:35 to [place] amaya iw
--- NOTE | 2021-04-04 15:20 | ER ---
Nurse's Notes [facility] Name: Sage Guaman Jr Age: 65 yrs Sex: Male : 1955 Arrival Date: 04/04/2021 Time: 12:22 Bed 17 Private MD: Diagnosis: Type 2 diabetes mellitus with diabetic neuropathy, unspecified;Hypoglycemia, unspecified;Cellulitis and acute lymphangitis of other parts of limb-with necrosis, sp amputation;Elevated white blood cell count;Anemia, unspecified;Coronavirus infection, unspecified;COPD/ Chronic obstructive pulmonary disease, unspecified Presentation: 04/04 12:22 Chief complaint: EMS states: 3 WK S/P R BKA, 1 WK PAIN AND INFECTION OF SURGICAL WOUND. bp Coronavirus screen: At this time, the client does not indicate any symptoms associated with coronavirus-19. Ebola Screen: No symptoms or risks identified at this time. Initial Sepsis Screen: Does the patient meet any 2 criteria? No. Patient's initial sepsis screen is negative. Does the patient have a suspected source of infection? Yes:. Risk Assessment: Do you want to hurt yourself or someone else? Patient reports no desire to harm self or others. Onset of symptoms is unknown. 12:22 Method Of Arrival: EMS: [facility] bp 12:22 Acuity: MARITZA 3 bp Triage Assessment: 12:30 General: Appears in no apparent distress. uncomfortable, Behavior is calm, cooperative, bp appropriate for age. Pain: Complains of pain in right leg. EENT: No deficits noted. Neuro: No deficits noted. Cardiovascular: No deficits noted. Respiratory: No deficits noted. GI: No signs and/or symptoms were reported involving the gastrointestinal system. : No signs and/or symptoms were reported regarding the genitourinary system. Derm: No deficits noted. Musculoskeletal: Amputation of right leg. Historical: - Allergies: 12:26 No Known Allergies; bp - Home Meds: 12:26 ascorbic acid (vitamin C) 500 mg tab 1 tab twice a day [Active]; aspirin 81 mg Oral bp TbEC 1 tab once daily [Active]; atorvastatin 40 mg oral tab 1 tab once daily [Active]; Bactrim DS 800-160 mg Oral tab 1 tab every 12 hours [Active]; chlorthalidone 25 mg Oral tab 0.5 tab once daily [Active]; cyanocobalamin (vitamin B-12) 500 mcg oral tab 1 tab daily [Active]; docusate sodium 100 mg Oral cap 1 cap once daily [Active]; gabapentin 400 mg oral cap 1 cap 3 times per day [Active]; glipizide 10 mg Oral tab 1 tab once daily [Active]; lactulose 20 gram/30 mL Oral soln 30 mL once daily [Active]; Lantus U-100 Insulin 100 unit/mL subcutaneous soln 10 unit daily [Active]; lisinopril 20 mg Oral tab 1 tab once daily [Active]; metformin 1,000 mg Oral tr24 1 tab 2 times per day [Active]; - PMHx: 12:26 Diabetes - NIDDM; Hypertension; Depressive disorder; Hypercholesterolemia; bp - PSHx: 12:26 Amputated below knee; RIGHT; bp - Immunization history:: Adult Immunizations up to date, Client reports receiving the 2nd dose of the Covid vaccine. - Social history:: Smoking status: Patient denies any tobacco usage or history of. - Family history:: not pertinent. Screenin:30 Abuse screen: Denies threats or abuse. Denies injuries from another. Nutritional bp screening: No deficits noted. Tuberculosis screening: No symptoms or risk factors identified. Fall Risk None identified. Assessment: 12:30 General: SEE TRIAGE NOTE. bp 14:00 Reassessment: No changes from previously documented assessment. Patient and/or family bp updated on plan of care and expected duration. Pain level reassessed. 16:20 Reassessment: REPORT TO [facility] TRANSPORT PENDING. bp Vital Signs: 12:22 BP 118 / 74; Pulse 88; Resp 16; Temp 98; Pulse Ox 99% ; Weight 68.04 kg; Height 5 ft. bp 10 in. (177.80 cm); 14:00 BP 104 / 65; Pulse 82; Resp 16; Pulse Ox 100% ; bp 12:22 Body Mass Index 21.52 (68.04 kg, 177.80 cm) bp NIH Stroke Scale Scores: 15:09 NIHSS Score: 0 amaya ED Course: 12:22 Patient arrived in ED. bp 12:25 Triage completed. bp 12:26 Arm band placed on. bp 12:28 Jackson Anthony MD is Attending Physician. amaya 12:30 Patient has correct armband on for positive identification. Bed in low position. Call bp light in reach. Side rails up X2. 13:06 Joe Ayala, RN is Primary Nurse. bp 13:30 Inserted saline lock: 20 gauge in right forearm, using aseptic technique. Blood bp collected. 13:57 XRAY Chest (1 view) In Process Unspecified. EDMS 13:57 Tib Fib Right XRAY In Process Unspecified. EDMS 15:00 Wound care: to SURGICAL located on right leg was dressed with Vaseline gauze, Patient bp tolerated well. 15:26 initiated transfer to [facility]. faxed chart to [place] ER as requested. bd 15:57 pt accepted in transfer to [facility] by Dr Vicente Travis, admin approval given by nicho Gray. 16:00 No provider procedures requiring assistance completed. bp 16:22 Patient transferred, IV remains in place. bp Administered Medications: 14:50 Drug: NS 0.9% 1000 ml Route: IV; Rate: 125 ml/hr; Site: right wrist; ww 16:23 Follow up: IV Status: Infusion continued upon transfer bp 15:00 Drug: D50W 50 ml Route: IVP; Site: right forearm; ww 16:23 Follow up: Response: No adverse reaction bp 15:08 Drug: Zosyn (piperacillin-tazobactam) 3.375 grams Route: IVPB; Infused Over: 60 mins; ww Site: right wrist; 16:23 Follow up: IV Status: Completed infusion; IV Intake: 100ml bp 15:17 Drug: vancoMYCIN 1 grams Route: IVPB; Infused Over: 2 hrs; Site: right wrist; ww 16:23 Follow up: IV Status: Completed infusion; IV Intake: 250ml bp Intake: 16:23 IV: 100ml; Total: 100ml. bp 16:23 IV: 250ml; Total: 350ml. bp Outcome: 15:19 ER care complete, transfer ordered by . amaya 17:05 Patient left the ED. NIH Stroke Scale - NIH Stroke Score Date: 04/04/2021 Time: 15:09 Total Score = 0 1a. Level of Consciousness (LOC) - 0(Alert) 1b. Level of Consciousness (LOC) (Month \T\ Age) - 0(Both) 1c. LOC Commands (Open \T\ Closes Eyes/Line Maintenance Supervisor) - 0(Both) 2. Best Gaze (Lateral Gaze Paresis) - 0(Normal) 3. Visual Field Loss - 0(No visual loss) 4. Facial Palsy - 0(Normal) 5a. Left Arm: Motor (10-second hold) - 0(No drift) 5b. Right Arm: Motor (10-second hold) - 0(No drift) 6a. Left Leg: Motor (5-second hold - always test supine) - 0(No drift) 6b. Right Leg: Motor (5-second hold - always test supine) - 0(No drift) 7. Limb Ataxia (finger/nose \T\ heel/weinstein - test with eyes open) - 0(Absent) 8. Sensory Loss (pinprick arms/legs/face) - 0(Normal) 9. Best Language: Aphasia (description/naming/reading) - 0(No aphasia) 10. Dysarthria (speech clarity - read or repeat words) - 0(Normal) 11. Extinction and Inattention (visual/tactile/auditory/spatial/personal) - 0(No abnormality) Initials: amaya Signatures: Dispatcher [employer] EDArabella Neff Corey, MD MD cha Williams, Irene, RN RN iw Peltier, Brian, RN RN bp Wood, Whitney, RN RN ww Corrections: (The following items were deleted from the chart) 12:48 12:26 Home Meds: none Pt reports he is supposed to be taking medicaiton for bp diabetes and HTN, but has not in a long time; bp
[2021-04-04 17:13] VITALS: TEMP 98
[2021-04-04 17:14] VITALS: BP 104/65; O2SAT 100
--- NOTE | 2021-04-05 11:18 | EKG ---
Test Date: 2021-04-04 Test Time: 13:35:54 Tail Trimmer: CAITLYN, MEASUREMENT RESULTS: Intervals: Rate: 80 NC: 148 QRSD: 100 QT: 390 QTc: 449 [place]: P: 55 NC: 148 QRS: -36 T: -6 INTERPRETIVE STATEMENTS: Normal sinus rhythm Left axis deviation Nonspecific ST abnormality Abnormal ECG Compared to ECG 02/13/2012 20:47:05 Left-axis deviation now present ST (T wave) deviation now present Myocardial infarct finding no longer present Electronically Signed On 04-05-21 11:14:19 DUAL RATE SUPERVISOR by Mauro Hayes
== END 2021-04-04 17:05 ==
LOC: ER 12:15
DX: L03.115 Cellulitis of right lower limb (principal); E11.52 Type 2 diabetes mellitus with diabetic peripheral angiopathy with gangrene; E11.649 Type 2 diabetes mellitus with hypoglycemia without coma; E11.40 Type 2 diabetes mellitus with diabetic neuropathy, unspecified; I96 Gangrene, not elsewhere classified; U07.1 COVID-19; D64.9 Anemia, unspecified; J44.9 Chronic obstructive pulmonary disease, unspecified; D72.829 Elevated white blood cell count, unspecified; Z89.511 Acquired absence of right leg below knee
CPT/HCPCS: 96365; 93005; 87040 ×2; 85025; 80048; 36415; 83735; 85610; 82947 ×3; 80076; 83605 ×2; 84484; 84145; 83880; 0241U; 71045; 73590; 96375; 99284; J2543; J3370; J7050; J7030

== ENCOUNTER 2024-07-08 21:11 | Inpatient (IN) | payer OTHER, SELFPAY ==
--- NOTE | 2024-07-08 22:21 | RAD REPORT ---
Procedure: Chest Single View HISTORY: Chest pain COMPARISON: 2021 FINDINGS: The lungs appear clear of acute infiltrate. No significant pleural effusion noted. The heart is mildly enlarged. IMPRESSION: No acute abnormality is displayed.
[2024-07-08 22:59] LABS: Absolute Basophils 0.1 K/uL (0-0.5); Absolute Lymphocytes (CBC) 1.8 K/uL (0.7-4.9); Absolute Monocytes 1.3 K/uL (0.1-1.3); Absolute Neutrophil 11.9 K/uL (1.8-8.0); Basophils % 0.4 % (0-1.3); Eosinophils % 0.3 % (0-4.4); Hematocrit 36.2 % (39.6-49.0); Lymphocytes % 11.9 % (15.3-44.8); MCHC 33.1 g/dL (32.0-36.0); MCV 81.5 fL (80-100); MPV 7.9 fL (7.6-11.3); Monocytes % 8.4 % (3.3-12.3); Platelets 470 thou/uL (152-406); RBC Red Blood Cell Count 4.44 M/uL (4.33-5.43); Red Cell Distribution Width 16.9 % (12.1-15.2)
[2024-07-08 23:32] LABS: Albumin 1.6 g/dL (3.4-5.0); Albumin/Globulin Ratio 0.3 (1.1-1.8); Bilirubin Total 0.4 mg/dL (0.2-1.0); Globulin 4.8 g/dL (2.3-3.5); Protein, Total 6.4 g/dL (6.4-8.2); Troponin High Sensitivity 55.6 pg/mL (<58.9)
[2024-07-08] MEDS ORDERED: NA CHLORIDE 0.9% 0 ML ONE (23:48)
[2024-07-08] MEDS ORDERED: POTASSIUM 25 MEQ EFFERV TAB ONE (23:48)
[2024-07-08] MEDS ORDERED: KCL 20 MEQ/100 mL IVPB 100 ML IV ONE (23:49)
--- NOTE | 2024-07-09 00:42 | RAD REPORT ---
CT ABDOMEN PELVIS WITHOUT IV CONTRAST CLINICAL INDICATION: Abdominal pain COMPARISON: CT pelvis 10/25/2018 TECHNIQUE: CT images of the abdomen and pelvis obtained without contrast. Multiplanar reformats were provided. Dose-optimization techniques such as automated exposure control, iterative reconstruction, and mA and/or kV adjustment for patient size was utilized for this examination. FINDINGS: LOWER CHEST: Small bilateral pleural effusions with associated dependent atelectasis in bilateral low er lobes. Small amount of hyperdensity in posterior bilateral lower lobes could represent pleural calcifications or aspirated material. Small pericardial effusion. Coronary artery calcifications. LIVER: Diffuse fatty infiltration of the liver without focal lesion. BILIARY: Unremarkable. PANCREAS: Unremarkable. SPLEEN: Unremarkable. ADRENALS: Large 5.0 x 4.1 x 3.5 cm left adrenal mass lesion with heterogeneous fat attenuation, likel y lipid rich adenoma. Left adrenal gland is mildly thickened. Right adrenal is unremarkable. KIDNEYS/URETERS: No nephrolithiasis or hydronephrosis. STOMACH: Unremarkable. BOWEL: Colonic diverticulosis without acute diverticulitis. APPENDIX: Normal. MESENTERY/PERITONEUM: Unremarkable. RETROPERITONEUM: No adenopathy. URINARY BLADDER: Mild urinary bladder wall thickening could be due to chronic outlet obstruction seco ndary to prostatomegaly. REPRODUCTIVE: Prostate is enlarged. VASCULAR: No aortic aneurysm. Moderate atherosclerotic calcifications of the abdominal and pelvic v asculature. Partially visualized right femoral bypass changes. ABDOMINAL/PELVIC WALL: Unremarkable. BONES: Multilevel degenerative changes of spine. No compression deformity, nor osteolytic or scleroti c lesion. IMPRESSION: 1. Small bilateral pleural effusions with associated dependent atelectasis in bilateral lower lobes . Small amount of hyperdensity in posterior bilateral lower lobes could represent pleural calcifications or aspirated material. 2. Small pericardial effusion. 3. Large 5.0 cm left adrenal mass lesion with heterogeneous fat attenuation, likely lipid rich sher tia. 4. Mild urinary bladder wall thickening could be due to chronic outlet obstruction secondary to pro statomegaly. 5. Hepatic steatosis. Electronically signed by: Sabrnia Martinez MD 07/09/2024 12:35 AM CDT Due to temporary technical issues with the [email or web address] reporting system, reports are being flora d by the in-house radiologist without review as a courtesy to ensure prompt reporting the interpreting radiologist is fully responsible for the content of the report. Transcribed Date/Time: 07/09/2024 12:42 AM
--- NOTE | 2024-07-09 00:47 | ER ---
Nurse's Notes [facility] Name: Sage Guaman Jr Age: 68 yrs Sex: Male : 1955 Arrival Date: 07/08/2024 Time: 21:11 Bed 16 Private MD: Diagnosis: Hypokalemia;Acute kidney failure, unspecified Presentation: 07/08 21:24 Chief complaint: Patient states[facility] for a me1 low potassium. c/o generalized weakness, nausea, diarrhea, urinary frequency. Has R AKA surgical wound that is not healing and is taking some antibiotics and antifungal medications for that. Coronavirus screen: At this time, the client does not indicate any symptoms associated with coronavirus-19. Ebola Screen: No symptoms or risks identified at this time. Initial Sepsis Screen: Does the patient meet any 2 criteria? No. Patient's initial sepsis screen is negative. Does the patient have a suspected source of infection? No. Patient's initial sepsis screen is negative. Risk Assessment: Do you want to hurt yourself or someone else? Patient reports no desire to harm self or others. Onset of symptoms is unknown. 21:24 Method Of Arrival: Wheelchair me1 21:24 Acuity: MARITZA 3 me1 Historical: - Allergies: 21:29 No Known Allergies; me1 - PMHx: 21:29 depressive disorder; Diabetes - NIDDM; Hypercholesterolemia; Hypertension; me1 - PSHx: 21:29 Amputated below knee; RIGHT; amputated above knee, RIGHT (Unknown); me1 - Immunization history:: Adult Immunizations up to date. - Infectious Disease History:: Denies. - Social history:: Smoking status: Patient/guardian denies using tobacco, but has a distant history of tobacco abuse. Screenin:30 [facility] ED Fall Risk Assessment (Adult) History of falling in the last 3 months, rg5 including since admission No falls in past 3 months (0 pts) Confusion or Disorientation No (0 pts) Intoxicated or Sedated No (0 pts) Impaired Gait Yes (1 pt) Mobility Assist Device Used Yes (1 pt) Altered Elimination No (0 pt) Score/Fall Risk Level 0 - 2 = Low Risk Oriented to surroundings, Maintained a safe environment, Provided non-skid footwear, Hourly rounding (assess needs \T\ fall precautionary measures) done. Abuse screen: Denies threats or abuse. Nutritional screening: No deficits noted. Tuberculosis screening: No symptoms or risk factors identified. Assessment: 21:30 General: Appears in no apparent distress. comfortable, Behavior is calm, cooperative, rg5 appropriate for age. 21:30 Pain: Denies pain. Neuro: Level of Consciousness is awake, alert, obeys commands, rg5 Oriented to person, place, time, situation. Cardiovascular: Denies chest pain, Patient's skin is warm and dry. Respiratory: Airway is patent Trachea midline Respiratory effort is even, unlabored, Respiratory pattern is regular, symmetrical, Breath sounds are clear. GI: Abdomen is round non-distended, Abd is soft and non tender Reports diarrhea. : No signs and/or symptoms were reported regarding the genitourinary system. EENT: No deficits noted. Derm: Skin is intact, Skin is dry, Skin is normal. Musculoskeletal: Amputation of right leg. Circulation, motion, and sensation intact. Range of motion: intact in all extremities. 07/09 00:48 Reassessment: No changes from previously documented assessment. Patient and/or family rg5 updated on plan of care and expected duration. Pain level reassessed. Patient is alert, oriented x 3, equal unlabored respirations, skin warm/dry/pink. Vital Signs: 07/08 21:24 BP 146 / 57; Pulse 72; Resp 18; Temp 98.1; Pulse Ox 100% ; Weight 83.91 kg; Height 5 me1 ft. 10 in. ; Pain 0/10; 23:00 BP 147 / 60; Pulse 66; Resp 18; Pulse Ox 99% on R/A; rg5 07/09 00:30 BP 134 / 68; Pulse 67; Resp 18; Pulse Ox 97% on R/A; Pain 0/10; rg5 02:10 BP 139 / 58; Pulse 69; Resp 18; Pulse Ox 100% ; Pain 0/10; rg5 05:53 BP 141 / 57; Pulse 66; Resp 18; Pulse Ox 99% ; rk3 07/08 21:24 Body Mass Index 26.54 (83.91 kg, 177.8 cm) me1 07/08 21:24 Pain Scale: Adult me1 07/09 00:30 Pain Scale: Adult rg5 02:10 Pain Scale: Adult rg5 ED Course: 07/08 21:23 Patient arrived in ED. mr 21:23 SelvinVerónica FNP-C [facility]. kb 21:23 Nic De La Torre MD is Attending Physician. kb 21:29 Triage completed. me1 21:29 Arm band placed on Patient placed in waiting room. me1 21:30 Patient has correct armband on for positive identification. Bed in low position. Call rg5 light in reach. Side rails up X 1. Door closed. Noise minimized. Warm blanket given. 21:30 No provider procedures requiring assistance completed. Inserted saline lock: 20 gauge rg5 in left antecubital area, using aseptic technique. Blood collected. Flushed with 10 mL NS. Patient maintains SpO2 saturation greater than 95% on room air. 21:33 Radiology exam delayed due to lab results not completed at this time. (BUN/Creatinine) nj IV insertion attempt and/or patient not having appropriate IV at this time. 22:12 XRAY Chest (1 view) In Process Unspecified. EDMS 22:34 Ren French, ANDREW is Primary Nurse. rg5 23:55 Abdomen In Process Unspecified. EDMS 23:[address] via stretcher. rg5 07/09 00:46 Randy Hutchinson MD is Hospitalizing Provider. kb 00:48 Provided Education on: needs for admit. rg5 00:48 Patient admitted, IV remains in place. intact, No redness/swelling at site. rg5 05:20 [facility] Notification # [id number]. rv1 Administered Medications: 00:13 Drug: Potassium PO Effervescent Tablet 50 mEq PO once; dissolve in 4 ounces of water or rg5 juice Route: PO; 01:07 Follow up: Response: No adverse reaction rg5 00:13 Drug: Potassium Chloride IV 20 mEq IV at calculated rate once; administer over 1-2 rg5 hours Route: IV; Rate: calculated rate; Site: left antecubital; 05:44 Follow up: IV Status: Completed infusion; IV Intake: 100ml rg5 Medication: 07/08 21:30 VIS not applicable for this client. rg5 Intake: 07/09 05:44 IV: 100ml; Total: 100ml. rg5 Outcome: 00:46 Decision to Hospitalize by Provider. kb 00:48 Admitted to Med/surg rg5 00:48 Condition: stable 00:48 Instructed on the need for admit, 06:30 Patient left the ED. rg5 Signatures: Dispatcher [employer] EDMS Verónica Montalvo, NARAYAN NON PROFIT DIRECTOR-Mary Zuñiga, Reg Reg Eliu Franco wilton Waylon, Norah rv1 Mary Trevino, RN RN me1 Ren French RN RN rg5 Jose Simon rk3 Corrections: (The following items were deleted from the chart) 07/08 21:31 21:29 Arm band placed on Patient placed in an exam room, nd1 me1 07/09 02:09 07/08 21:30 GI: Abdomen is round non-distended, Abd is soft and non tender rg5 rg5
--- NOTE | 2024-07-09 00:47 | EDPHYS ---
Physician Documentation [facility] Name: Sage Guaman Jr Age: 68 yrs Sex: Male : 1955 Arrival Date: 07/08/2024 Time: 21:11 Bed 16 Private MD: ED Physician Nic De La Torre HPI: 07/08 22:04 This 68 yrs old Male presents to ER via Wheelchair with complaints of Abnormal kb Lab Results. 22:04 Patient is a 68-year-old male who presents for low potassium. States he was started on kb antibiotics for an infection to his stump after an amputation and has had diarrhea since then. States he had blood work done at the [place] today and got a call about 1 hour prior to arrival saying that his potassium was very low and he needed to come to the ER for evaluation and replacement. Patient states he has also been having urinary frequency due to starting a diuretic. States he does not take a potassium supplement.. Historical: - Allergies: 21:29 No Known Allergies; me1 - PMHx: 21:29 depressive disorder; Diabetes - NIDDM; Hypercholesterolemia; Hypertension; me1 - PSHx: 21:29 Amputated below knee; RIGHT; amputated above knee, RIGHT (Unknown); me1 - Immunization history:: Adult Immunizations up to date. - Infectious Disease History:: Denies. - Social history:: Smoking status: Patient/guardian denies using tobacco, but has a distant history of tobacco abuse. ROS: 22:04 Constitutional: As per HPI kb Exam: 22:04 Constitutional: This is a well developed, well nourished patient who is awake, alert, kb and in no acute distress. Head/Face: Normocephalic, atraumatic. ENT: Moist Mucous membranes Cardiovascular: Regular rate Respiratory: Respirations even and unlabored. No increased work of breathing. Talking in full sentences Skin: Warm, dry with normal turgor. Normal color. Neuro: Awake and alert, GCS 15, oriented to person, place, time, and situation. 22:04 Abdomen/GI: Inspection: abdomen appears normal, Bowel sounds: normal, Palpation: soft, in all quadrants, mild abdominal tenderness, in the left lower quadrant, 22:37 ECG was reviewed by the Attending Physician. kb Vital Signs: 21:24 BP 146 / 57; Pulse 72; Resp 18; Temp 98.1; Pulse Ox 100% ; Weight 83.91 kg; Height 5 me1 ft. 10 in. ; Pain 0/10; 23:00 BP 147 / 60; Pulse 66; Resp 18; Pulse Ox 99% on R/A; rg5 07/09 00:30 BP 134 / 68; Pulse 67; Resp 18; Pulse Ox 97% on R/A; Pain 0/10; rg5 02:10 BP 139 / 58; Pulse 69; Resp 18; Pulse Ox 100% ; Pain 0/10; rg5 05:53 BP 141 / 57; Pulse 66; Resp 18; Pulse Ox 99% ; rk3 07/08 21:24 Body Mass Index 26.54 (83.91 kg, 177.8 cm) me1 07/08 21:24 Pain Scale: Adult me1 07/09 00:30 Pain Scale: Adult rg5 02:10 Pain Scale: Adult rg5 MDM: 07/08 21:23 Medical Screening Exam initiated kb 22:05 Data reviewed: vital signs, nurses notes. kb 07/09 00:43 Differential diagnosis: abnormal electrolytes, dehydration, acute renal failure. kb Consideration of Admission/Observation Patient was admitted/placed on observation. Escalation of care including admission/observation considered. Consideration of Admission/Observation transfer to [place] considered for continuity of care, but pt prefers to stay here. . Management of patient was discussed with the following: Hospitalist: Dr Hutchinson accepts pt for admission. Historians other than the Patient: Daughter/Son: son. Counseling: I had a detailed discussion with the patient and/or guardian regarding the historical points, exam findings, and any diagnostic results supporting the discharge/admit diagnosis, lab results, radiology results, the need for further work-up and treatment in the hospital. 07/08 21:30 Order name: CBC with Diff; Complete Time: 23:01 kb 07/08 21:30 Order name: CMP; Complete Time: 23:38 kb 07/08 21:30 Order name: Lipase; Complete Time: 23:38 kb 07/08 21:30 Order name: Urinalysis w/ reflexes; Complete Time: 03:08 kb 07/08 21:30 Order name: Troponin HS; Complete Time: 23:38 kb 07/09 02:24 Order name: Urine Culture EDMA 07/09 04:59 Order name: CBC with Automated Diff EDMS 07/09 04:59 Order name: CBC with Automated Diff EDMS 07/09 04:59 Order name: Comprehensive Metabolic Panel EDMS 07/09 04:59 Order name: Comprehensive Metabolic Panel EDMS 07/08 21:30 Order name: XRAY Chest (1 view); Complete Time: 22:29 kb 07/08 23:42 Order name: Abdomen EDMS 07/08 21:30 Order name: IV Saline Lock; Complete Time: 22:53 kb 07/08 21:30 Order name: Labs collected and sent; Complete Time: 22:53 kb 07/08 21:30 Order name: EKG - Nurse/Tech; Complete Time: 22:37 kb EC/08 22:37 Rate is 67 beats/min. Rhythm is regular. QRS [place] is Normal. [place] interval is normal at kb 174 msec. QRS interval is normal at 122 msec. QT interval is normal at 458 msec. Administered Medications: 07/09 00:13 Drug: Potassium PO Effervescent Tablet 50 mEq PO once; dissolve in 4 ounces of water or rg5 juice Route: PO; 01:07 Follow up: Response: No adverse reaction rg5 00:13 Drug: Potassium Chloride IV 20 mEq IV at calculated rate once; administer over 1-2 rg5 hours Route: IV; Rate: calculated rate; Site: left antecubital; 05:44 Follow up: IV Status: Completed infusion; IV Intake: 100ml rg5 Disposition: 01:17 Co-signature as Attending Physician, Nic De La Torre MD I agree with the assessment sp4 and plan of care. I reviewed the patient's care provided by Advanced Practice Provider \T\ agree w/ the diagnosis \T\ care plan. I personally saw the pt \T\ performed a substantive portion of the visit, incldng all aspects of the (History/Exam/Medical Decision Making). Disposition Summary: 07/09/24 00:46 Hospitalization Ordered Notes: Hospitalization Status: Inpatient Admission kb Provider: Randy Hutchinson Location: Telemetry/MedSurg (Inpatient) kb Condition: Stable kb Problem: new kb Symptoms: are unchanged kb Bed/Room Type: [facility] Room Assignment: [facility](07/09/24 05:02) kl Diagnosis - Hypokalemia kb - Acute kidney failure, unspecified kb Forms: - Medication Reconciliation Form kb - SBAR form kb - Leadership Thank You Letter adria Critical care time excluding procedures: 07/08 23:44 Critical care time: Bedside Care: 10 minutes, Consultation: 10 minutes, Family kb Intervention: 10 minutes. Total time: 30 minutes Signatures: Dispatcher [employer] EDVerónica Swan, DIRECTOR OF ENVIRONMENTAL SERVICES-C SHANKAR-Elo Castaneda, RN RN Nic Pulido MD MD sp4 Mary Trevino RN RN me1 Ren French RN RN rg5 Corrections: (The following items were deleted from the chart) 21:31 21:30 Abdomen Pelvis W Con+CT.RAD.BRZ ordered. [facility] 07/09 05:02 00:46 adria agudelo
[2024-07-09 02:20] LABS: Specific Gravity 1.009 (1.005-1.030); Sqamous Epithelial <5 /HPF (None Seen); Urine Bacteria <20 /HPF (<20); Urine Bilirubin NEGATIVE (Negative); Urine Blood 2+ (Negative); Urine Clarity Extremely Turbid (Clear); Urine Color Light-Orange (Yellow); Urine Culture Reflex Order REFLEXED; Urine Glucose 4+ (Over) (Negative); Urine Ketones NEGATIVE (Negative); Urine Microscopic Reflex YN ORDER UMIC; Urine Mucus Slight /HPF (None Seen); Urine Nitrite NEGATIVE (Negative); Urine Protein 2+ (Negative); Urine RBC <5 /HPF (None Seen); Urine Sperm Present (None Seen); Urine Urobilinogen Normal (Normal); Urine WBC 20-50 /HPF (<5)
[2024-07-09] MEDS ORDERED: ONDANSETRON 4 MG/2 ML VIAL IV PRN (04:54)
--- NOTE | 2024-07-09 05:02 | P.HP ---
Patient History Date of Service: 07/09/24 Reason for admission: Acute kidney injury History of Present Illness: 68-year-old male with a past medical history of diabetes, hypertension, right AKA, presenting with diarrhea for the last 30 days. He states he was undergoing treatment of his right AKA and was placed on antibiotics as well as antifungals. He was placed on long-term antimicrobials and was told that this was the cause of his diarrhea. He states despite being off antimicrobials he continues to have diarrhea. He recently completed wound VAC therapy for the right AKA wound which is now healed. He has a home health nurse that comes out to his house. He denies any fevers or chills. He states he is on a low-dose aspirin Allergies No Known Allergies Allergy (Verified 02/14/12 01:59) Home Medications: Glimepiride [Amaryl] 4 mg PO BID 10/25/18 Metformin HCl [Metformin HCl ER] 750 mg PO BID 10/25/18 lisinopriL [Prinivil*] 5 mg PO DAILY 10/25/18 Cephalexin [Keflex] 500 mg PO Q6HR #32 cap 10/27/18 Insulin Glargine Human [Lantus*] 20 units SQ BID #1 vial 10/27/18 Smz./Tmp. [Bactrim Ds 800 MG/160 MG] 1 tab PO BID #16 tab 10/27/18 - Past Medical/Surgical History Diabetic: Yes -: Diabetes mellitus type 2, non-insulin dependent -: Tobacco abuse -: Hypertension -: I and D of rectal abscess -: Surgery to the right hand Psychosocial/ Personal History: Patient is . Patient lives with son. He is originally from [place]. - Social History Alcohol use: Yes CD- Drugs: No Caffeine use: Yes Review of Systems 10-point ROS is otherwise unremarkable General: As per HPI Physical Examination - Physical Exam General: In no apparent distress HEENT: Atraumatic Neck: Supple Respiratory: Clear to auscultation bilaterally Cardiovascular: No edema, Edema Capillary refill: <2 Seconds Gastrointestinal: Normal bowel sounds Musculoskeletal: Other (Right AKA) Integumentary: No rashes Neurological: Normal speech Lymphatics: No axilla or inguinal lymphadenopathy - Studies Laboratory Data (last 24 hrs) 07/08/24 07/08/24 22:35 22:35 WBC 15.00 H Hgb 12.0 L Hct 36.2 L Plt Count 470 H Sodium 136 Potassium 2.0 L* BUN 23 H Creatinine 3.18 H Glucose 157 H Total Bilirubin 0.4 AST 30 ALT 20 Alkaline Phosphatase 232 H Lipase 29 Assessment and Plan - Plan Acute kidney injury Diarrhea Leukocytosis Hypokalemia Left adrenal mass Right AKA Right AKA wound resolved Continue IV fluid Start Rocephin He states he completed antifungal medication for his right AKA wound Obtain procalcitonin and CRP Replace potassium Monitor kidney function and avoid nephrotoxins DVT prophylaxis with SCDs - Advance Directives Does patient have a Living Will: No Does patient have a Durable POA for Healthcare: No
[2024-07-09] MEDS ORDERED: D10W 125 ML IV PRN (05:06)
[2024-07-09] MEDS ORDERED: GLUCAGON 1 MG/VIAL IM PRN (05:06)
[2024-07-09] MEDS: INSULIN REGULAR (HUMAN) 100 UNIT/ML SQ SCH (07:30)
--- NOTE | 2024-07-09 08:03 | P.PN ---
Date of Service: 07/09/24 Subjective: feeling better today reports ongoing diarrhea over the last 4-5 days denies any abdominal pain feels his urine has been darker over the last month, otherwise denies urinary symptoms reports 1 month of taking antinfungal for fungus found in stump wound, supposed to be taking for 3 months, but ran out a week ago and didn't want to continue due to concern it was cause of loose stool Physical Exam: GEN: Alert, orientedx3, NAD CV: Regular rate and rhythm, no edema Pulm: Nonlabored respirations on room air, clear bilaterally ABD: soft, nontender, nondistended MSK: Right AKA stump healing wound - no signs of infxn Neuro: Normal speech, normal affect Problem List: ROBIN Hypokalemia Diarrhea Recent infected Right AKA stump wound IDDM2 Hypertension Left adrenal mass ROBIN Hypokalemia Diarrhea on admission, presents per OR recommendation with abnormal blood work at OR - with low potassium and ROBIN. He reports some weakness, diarrhea over the last few days. Denies prior history of kidney issues. CT abdomen (07/09): Small b/l pleural effusions. Small pericardial effusion. Bladder wall thickening Mild urinary bladder wall thickening could be due to chronic outlet obstruction secondary to prostatomegaly. Hepatic Steatosis. Rocephin started on admission potassium 2.0, Creatinine 3.18 on admission ROBIN/Hypokalemia likely secondary to diarrhea/dehydration unclear exact etiology, and what his baseline renal fxn is reports recent admission to OR in [place] for stump infxn ~1-2 months ago denies being told he has renal disease Denies any urinary obstructive symptoms/review of systems Given IV and oral potassium in ED. 07/09 -chemistry was delayed due to machine being down this morning, resulted late morning with worsening creatinine Continue IV fluids Nephrology consulted further workup renal dz check cpk Recent infected Right AKA stump wound Per patient - last hospitalized at [facility] ~1 month ago for Right AKA wound infection. s/p antibiotics and antifungal treatment He was placed on long-term antifungal for right AKA wound. He was told diarrhea was secondary to medication however continues with diarrhea despite completing treatment. Reports he recently completed wound VAC therapy for right AKA wound this past week ~07/04 Request [facility] records. Continue local wound care. Pressure offloading. No evidence of active infection at this time IDDM2 accu-cheks, SSI confirm home meds Hypertension confirm home meds, restart as appropriate Left adrenal mass CT abd noted Large 5.0 cm left adrenal mass lesion with heterogeneous fat attenuation, likely lipid rich adenoma Patient states he has never been told about this mass before He also states he is sure he has had previous scans of his abdomen at the OR Code: Full Dispo: Home with 2-3 days Time Spent Managing Pts Care (In Minutes): 55
[2024-07-09 08:06] LABS: Absolute Basophils 0.1 K/uL (0-0.5); Absolute Eosinophils 0.1 K/uL (0-0.5); Absolute Lymphocytes (CBC) 1.2 K/uL (0.7-4.9); Absolute Monocytes 1.7 K/uL (0.1-1.3); Absolute Neutrophil 16.7 K/uL (1.8-8.0); Basophils % 0.5 % (0-1.3); Eosinophils % 0.4 % (0-4.4); Hematocrit 34.3 % (39.6-49.0); Hemoglobin 11.4 g/dL (13.6-17.9); MCH 27.2 pg (27.0-35.0); MCHC 33.2 g/dL (32.0-36.0); MPV 8.3 fL (7.6-11.3); Monocytes % 8.4 % (3.3-12.3); Neutrophils % 84.7 % (41.7-73.7); Nucleated Red Blood Cells % 0.1 % (0-0); Platelets 379 thou/uL (152-406); RBC Red Blood Cell Count 4.19 M/uL (4.33-5.43); Red Cell Distribution Width 16.6 % (12.1-15.2)
[2024-07-09] MEDS: CEFTRIAXONE 1,000 MG in NA CHLORIDE 0.9% 50 ML IVPB SCH (08:20)
[2024-07-09] MEDS: NA CHLORIDE 0.9% 1,000 ML IV SCH (08:22)
[2024-07-09 10:51] LABS: Albumin 1.5 g/dL (3.4-5.0); Albumin/Globulin Ratio 0.3 (1.1-1.8); Anion Gap 14.3 mEq/L (5.0-15.0); Bilirubin Total 0.5 mg/dL (0.2-1.0); Globulin 4.5 g/dL (2.3-3.5); Magnesium 1.9 mg/dL (1.6-2.4); Phosphorus 2.1 mg/dL (2.5-4.9)
[2024-07-09 10:52] LABS: Potassium 2.3 mEq/L (3.5-5.1)
[2024-07-09] MEDS: POTASS/SODIUM PHOSPHATE 1 PKT POWD.PACK PO SCH (11:29)
[2024-07-09] MEDS: KCL 20 MEQ/100 mL IVPB 20 MEQ/100 ML BAG IV SCH (11:30)
--- NOTE | 2024-07-09 11:57 | EKG ---
Test Date: 2024-07-08 Test Time: 22:33:42 Emt/Dispatcher: COLUMBA MEASUREMENT RESULTS: Intervals: Rate: 67 ND: 174 QRSD: 122 QT: 434 QTc: 458 Valentine: P: 42 ND: 174 QRS: -44 T: 115 INTERPRETIVE STATEMENTS: Sinus rhythm with frequent premature ventricular complexes Left axis deviation Possible Lateral infarct, age undetermined Inferior infarct, age undetermined Abnormal ECG Compared to ECG 04/04/2021 13:35:54 Ventricular premature complex(es) now present Myocardial infarct finding now present ST (T wave) deviation no longer present Electronically Signed On 07-09-24 11:56:17 CDT by Isaías Bhatti
[2024-07-09] MEDS: Ringers Lactate 500 ML IV ONE (13:58)
[2024-07-09] MEDS: MAGNESIUM SULFATE 1 gm IVPB 1 GM/100 ML BAG IV ONE (13:58)
[2024-07-09 16:27] LABS: Specific Gravity 1.006 (1.005-1.030); Sqamous Epithelial None Seen /HPF (None Seen); Urine Bacteria <20 /HPF (<20); Urine Bilirubin NEGATIVE (Negative); Urine Blood 1+ (Negative); Urine Clarity Turbid (Clear); Urine Color Colorless (Yellow); Urine Crystals Unidentified Few /HPF (None Seen); Urine Culture Reflex Order NOT NEEDED; Urine Glucose 4+ (Negative); Urine Ketones NEGATIVE (Negative); Urine Microscopic Reflex YN ORDER UMIC; Urine Nitrite NEGATIVE (Negative); Urine Protein 1+ (Negative); Urine RBC <5 /HPF (None Seen); Urine Urobilinogen Normal (Normal); Urine WBC <5 /HPF (<5); Urine pH 6.5 (5.0-7.0)
--- NOTE | 2024-07-09 17:04 | CON ---
Date of Consultation: 07/09/2024 Reason For Consultation: Elevated BUN and creatinine, hypokalemia, electrolyte imbalance. History Of Present Illness: This is a 68-year-old gentleman with significant past medical history of diabetes type 2 since 1979, complicated with neuropathy, no retinopathy, hypertension, hyperlipidemi a, PAD status post right above knee amputation 4 years back. According to the patient, the patient d oes not have any kidney history. Back in 2021, the creatinine here in our facility within normal cortes it. The patient found to have stump infection 1 month ago, had to have debridement at that time. [facility] patient was placed on antibiotic and then the patient found to have fungus infection on the stump. For that reason, the patient was started on anti fungus medication according to him. For that delia adams, last week started developing diarrhea, nausea and vomiting, weakness, [facility]. Primary lab showed elevation in BUN and creatinine with hypokalemia. For that reason, directed to [facility]. The patient denied any fever. Denied taking any nonsteroidal. The patient upon arrival to the hospital found to have elevation in BUN and creatinine. Creatinine is 3.1 with GFR 20. For that reason, we have been consulted. The patient was started on hydration. Kidney function continue s to decline. Creatinine 3.5. Past Medical History: Includes: 1. Diabetes type 2 complicated with neuropathy, no retinopathy. 2. Hypertension. 3. Hyperlipidemia. 4. PAD. 5. Status post abscess on the right hand. Past Surgical History: Includes: 1. Right above-knee amputation. 2. Abscess debridement. Allergies: NO KNOWN DRUG ALLERGY. Home Medications: Include glimepiride, metformin, lisinopril, cephalexin, insulin, and Bactrim. Social History: Active alcohol. Denied drug use. Smoker. Family History: Positive for diabetes. Review of Systems: Head and Neck: No red eye. No ear pain. GI: Has nausea, vomiting, has diarrhea. : No polyuria, no dysuria, no hematuria. Plaster Mechanic: Not applicable. Respiratory: No shortness of breath. Cardiovascular: No chest pain. Endocrine: No polydipsia. Skin: No rash. Physical Examination: General: When I saw the patient, the patient is lying in bed, not in any distress. Vital Signs: Blood pressure 134/47, pulse of 66, afebrile. Chest: Clear to auscultation. Heart: S1, S2. Systolic murmur. Abdomen: Soft, nontender. No guarding or rebound. Extremities: Right above-knee amputation with dressing. No edema on the left side. Neurologic: Alert, no focality. Labs: Sodium 139, potassium 2.3, bicarb 23, BUN 23, creatinine 3.5, GFR of 18. Calcium 7.7, phospho jf 2.1, magnesium 1.9. Albumin 1.5. Corrected calcium is 9.7. Hemoglobin 11.4, WBC 19.7. Current Medications: The patient on include: 1. Ceftriaxone. 2. IV fluid. 3. Potassium chloride. Assessment And Plan: 1. Acute kidney injury secondary to prerenal. Obstructive uropathy has been ruled out with the CT. I am going to continue aggressive hydration and we will monitor the patient. We will send for CK and the rest of the workup with the presence of anemia to rule out any light chain disease. Our differe ntial is prerenal. Superimposed with Bactrim use. 2. Hypertension, controlled, optimal, with the presence of acute kidney injury hold lisinopril. 3. Hypokalemia, hypomagnesemia. Secondary to dehydration. I am going to replace carefully given the acute kidney injury. 4. Hypophosphatemia. We will hold on any replacement for the time being given the acute kidney injur y. 5. Diabetes. As by primary. 6. Stump infection. As by primary. Please hold Bactrim and Keflex for the time being. SHEA Voice ID: [id number] Report ID: [id number]
[2024-07-10 07:53] LABS: Absolute Basophils 0.1 K/uL (0-0.5); Absolute Eosinophils 0.1 K/uL (0-0.5); Absolute Lymphocytes (CBC) 1.7 K/uL (0.7-4.9); Absolute Monocytes 1.1 K/uL (0.1-1.3); Absolute Neutrophil 10.3 K/uL (1.8-8.0); Basophils % 0.5 % (0-1.3); Eosinophils % 0.8 % (0-4.4); Hematocrit 35.5 % (39.6-49.0); Hemoglobin 11.6 g/dL (13.6-17.9); Lymphocytes % 12.9 % (15.3-44.8); MCH 26.7 pg (27.0-35.0); MCHC 32.6 g/dL (32.0-36.0); MPV 8.4 fL (7.6-11.3); Monocytes % 8.1 % (3.3-12.3); Neutrophils % 77.7 % (41.7-73.7); Percent Reticulocyte Count 0.69 % (0.4-2.05); Platelets 385 thou/uL (152-406); RBC Red Blood Cell Count 4.33 M/uL (4.33-5.43); Red Cell Distribution Width 17.1 % (12.1-15.2)
[2024-07-10 08:37] LABS: Albumin 1.4 g/dL (3.4-5.0); Albumin/Globulin Ratio 0.3 (1.1-1.8); Anion Gap 10.1 mEq/L (5.0-15.0); Bilirubin Total 0.4 mg/dL (0.2-1.0); Ferritin 88.5 ng/mL (26-388); Globulin 4.3 g/dL (2.3-3.5); Magnesium 2.2 mg/dL (1.6-2.4); Phosphorus 2.6 mg/dL (2.5-4.9); Potassium 3.1 mEq/L (3.5-5.1); Protein, Total 5.7 g/dL (6.4-8.2); Thyroid Stimulating Hormone 0.266 uIU/mL (0.358-3.740); Uric Acid 4.1 mg/dL (3.5-7.2)
--- NOTE | 2024-07-10 09:38 | P.PN ---
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 urinary issues - no hesitancy, has good stream, feels he empties his bladder, no dysuria, etc no new/worsening symptoms Physical Exam: GEN: Alert, orientedx3, NAD CV: Regular rate and rhythm, no edema Pulm: Nonlabored respirations on room air, clear bilaterally ABD: soft, nontender, nondistended MSK: Right AKA stump healing wound - no signs of infxn Neuro: Normal speech, normal affect Problem List: ROBIN Hypokalemia Diarrhea Recent infected Right AKA stump wound IDDM2 Hypertension Left adrenal mass iron deficiency hypoalbuminemia ROBIN Hypokalemia Diarrhea on admission, presents per [place] recommendation with abnormal blood work at [facility] - with low potassium and ROBIN. He reports some weakness, diarrhea over the last few days. Denies prior history of kidney issues. CT abdomen (07/09): Small b/l pleural effusions. Small pericardial effusion. Bladder wall thickening Mild urinary bladder wall thickening could be due to chronic outlet obstruction secondary to prostatomegaly. Hepatic Steatosis. Rocephin started on admission potassium 2.0, Creatinine 3.18 on admission ROBIN/Hypokalemia likely secondary to diarrhea/dehydration unclear exact etiology, and what his baseline renal fxn is reports recent admission to [facility] in [place] for stump infxn ~1-2 months ago denies being told he has renal disease Denies any urinary obstructive symptoms/review of systems Given IV and oral potassium in ED. 07/09 -chemistry was delayed due to machine being down this morning, resulted late morning with worsening creatinine Continue IV fluids Nephrology consulted further workup renal dz check cpk [facility], [facility] baseline unknown home meds he was taking renal fxn worse, despite IVF nephro following, workup expanded / pending serum cortisol result from yesterday - on higher side, check ACTH, may need f urther eval / dex suppression test has adrenal mass of unknown duration, r/o functioning tumoro Recent infected Right AKA stump wound Per patient - last hospitalized at [facility] ~1 month ago for Right AKA wound infection. s/p antibiotics and antifungal treatment He was placed on long-term antifungal for right AKA wound. He was told diarrhea was secondary to medication however continues with diarrhea despite completing treatment. Reports he recently completed wound VAC therapy for right AKA wound this past week ~07/04 Request [facility] records. Continue local wound care. Pressure offloading. No evidence of active infection at this time IDDM2 accu-cheks, SSI confirm home meds Hypertension confirm home meds, restart as appropriate Left adrenal mass CT abd noted Large 5.0 cm left adrenal mass lesion with heterogeneous fat attenuation, likely lipid rich adenoma Patient states he has never been told about this mass before He also states he is sure he has had previous scans of his abdomen at the [place] as noted above, further eval iron deficiency hypoalbuminemia Code: Full Dispo: Home with HH 3+ days Time Spent Managing Pts Care (In Minutes): 55
[2024-07-10] MEDS: POTASSIUM 25 MEQ EFFERV TAB PO ONE (10:04)
--- NOTE | 2024-07-10 12:34 | PN ---
Date of Progress Note: 07/10/2024 Subjective: The patient was admitted to the hospital with acute kidney injury secondary to questiona ble prerenal. The patient was started on IV hydration. Kidney function continue to decline. The pa tient deny any rashes. Deny any nausea, any vomiting. Physical Examination: Vital Signs: Blood pressure 144/66, pulse of 71, afebrile. Chest: Clear to auscultation. Heart: S1, S2. Regular. Abdomen: Soft, nontender. Extremities: Right above-knee amputation. Laboratory Data: WBC 13.2, hemoglobin 11.6, platelet 385. Sodium 139, potassium 3.1, bicarb 25, BUN 30, creatinine 4.3, GFR 14, uric acid 4.1, calcium 7.7, phosphorus 2.6, iron saturation 10.2, ferrit in 88, CK of 51, albumin 1.4, corrected calcium is 9.7. Serum protein electrophoresis still pending. TSH 0.2, PTH 51. PC ratio not done yet, but the patient had +2 protein. Serology still pending. Assessment And Plan: 1. Acute kidney injury, questionable prerenal. The patient looked normal volume. Kidney function co ntinue to decline. No uremia. No hyperkalemia. No acidosis. No significant disproportion between BUN and creatinine to support the prerenal. I had long discussion with the patient that the patient may need renal replacement therapy if kidney function decline further. The patient on agreement, but he like to watch it. 2. Also I discussed with the patient that we may need to proceed with kidney biopsy to evaluate why t he acute decline in the kidney function. The patient like to think about it before he decide. We wi ll follow up with the patient. 3. We will follow up serology. 4. Iron deficiency anemia. I am not going to start the patient on any IV iron currently given the ac tive infection and hemoglobin being 11.6. 5. Anemia. We will follow up serum protein electrophoresis. 6. Proteinuria. Waiting for quantification and serology. 7. Hypokalemia. We will supplement cautiously and we will follow up. 8. Diabetes, as by primary. 9. Stump infection as by primary and ID. SYD/SARANL Voice ID: [id number] Report ID: [id number]
[2024-07-10] MEDS: POTASSIUM CL SA 10 MEQ TAB PO ONE (12:42)
[2024-07-10] MEDS: KCL 20 MEQ/100 mL IVPB 20 MEQ/100 ML BAG IV SCH (18:15)
[2024-07-11 06:24] LABS: Hematocrit 35.6 % (39.6-49.0); Hemoglobin 11.7 g/dL (13.6-17.9); MCH 26.6 pg (27.0-35.0); MCHC 32.8 g/dL (32.0-36.0); MCV 81.3 fL (80-100); Platelets 416 thou/uL (152-406); RBC Red Blood Cell Count 4.38 M/uL (4.33-5.43)
[2024-07-11 06:40] LABS: Albumin 1.4 g/dL (3.4-5.0); Anion Gap 11.2 mEq/L (5.0-15.0); Phosphorus 2.2 mg/dL (2.5-4.9); Potassium 3.2 mEq/L (3.5-5.1)
[2024-07-11 06:43] LABS: Rheumatoid Factor NEG (NEG)
[2024-07-11] MEDS: KCL 20 MEQ/100 mL IVPB 20 MEQ/100 ML BAG IV SCH (10:41)
--- NOTE | 2024-07-11 12:06 | P.PN ---
Date of Service: 07/11/24 Subjective: feels back to his normal states he hasn't felt this good in awhile denies any new/worsening symptoms voiding without issue Physical Exam: GEN: Alert, orientedx3, NAD CV: Regular rate and rhythm, no edema ABD: soft, nontender, nondistended MSK: Right AKA stump healing wound - no signs of infxn Neuro: Normal speech, normal affect Problem List: ROBIN Hypokalemia Diarrhea Recent infected Right AKA stump wound IDDM2 Hypertension Left adrenal mass iron deficiency hypoalbuminemia ROBIN Hypokalemia Diarrhea on admission, presents per [facility] recommendation with abnormal blood work at [facility] - with low potassium and ROBIN. He reports some weakness, diarrhea over the last few days. Denies prior history of kidney issues. CT abdomen (07/09): Small b/l pleural effusions. Small pericardial effusion. Bladder wall thickening Mild urinary bladder wall thickening could be due to chronic outlet obstruction secondary to prostatomegaly. Hepatic Steatosis. Rocephin started on admission potassium 2.0, Creatinine 3.18 on admission ROBIN/Hypokalemia likely secondary to diarrhea/dehydration unclear exact etiology, and what his baseline renal fxn is reports recent admission to [facility] in [place] for stump infxn ~1-2 months ago denies being told he has renal disease Denies any urinary obstructive symptoms/review of systems Given IV and oral potassium in ED. 07/09 -chemistry was delayed due to machine being down this morning, resulted late morning with worsening creatinine Continue IV fluids Nephrology consulted further workup renal dz check cpk 07/10- [facility], unknown baseline unknown home meds he was taking renal fxn worse, despite IVF nephro following, workup expanded / pending serum cortisol result from yesterday - on higher side, check ACTH, may need further eval / dex suppression test has adrenal mass of unknown duration, 07/11 - diarrhea improved renal fxn worsening pt feels better nephro following, awaiting further recs Recent infected Right AKA stump wound Per patient - last hospitalized at [facility] ~1 month ago for Right AKA wound infection. s/p antibiotics and antifungal treatment He was placed on long-term antifungal for right AKA wound. He was told diarrhea was secondary to medication however continues with diarrhea despite completing treatment. Reports he recently completed wound VAC therapy for right AKA wound this past w [place] ~07/04 Request [facility] records. Continue local wound care. Pressure offloading. No evidence of active infection at this time 07/11 - pt called home health nurse to confirm medication since we still haven't received med records from [place] RN stated posaconazole 300mg three times/day for 3 months patient has taken it for ~1 month He states he last took it last Sunday IDDM2 accu-cheks, SSI confirm home meds Hypertension confirm home meds, restart as appropriate Left adrenal mass CT abd noted Large 5.0 cm left adrenal mass lesion with heterogeneous fat attenuation, likely lipid rich adenoma Patient states he has never been told about this mass before He also states he is sure he has [facility], further eval iron deficiency hypoalbuminemia Code: Full Dispo: Home with HH 3+ days Time Spent Managing Pts Care (In Minutes): 55
[2024-07-12 06:31] LABS: Absolute Basophils 0.1 K/uL (0-0.5); Absolute Eosinophils 0.2 K/uL (0-0.5); Absolute Lymphocytes (CBC) 1.2 K/uL (0.7-4.9); Absolute Monocytes 0.7 K/uL (0.1-1.3); Absolute Neutrophil 7.1 K/uL (1.8-8.0); Eosinophils % 2.1 % (0-4.4); Hematocrit 33.1 % (39.6-49.0); Hemoglobin 11.2 g/dL (13.6-17.9); Lymphocytes % 12.8 % (15.3-44.8); MCH 27.5 pg (27.0-35.0); MCHC 33.7 g/dL (32.0-36.0); MCV 81.5 fL (80-100); MPV 7.8 fL (7.6-11.3); Monocytes % 7.8 % (3.3-12.3); Neutrophils % 76.3 % (41.7-73.7); Platelets 431 thou/uL (152-406); RBC Red Blood Cell Count 4.06 M/uL (4.33-5.43); Red Cell Distribution Width 16.9 % (12.1-15.2)
[2024-07-12 06:50] LABS: Albumin 1.4 g/dL (3.4-5.0); Anion Gap 10.1 mEq/L (5.0-15.0); Phosphorus 2.4 mg/dL (2.5-4.9); Potassium 3.1 mEq/L (3.5-5.1); Thyroid Stimulating Hormone 0.664 uIU/mL (0.358-3.740)
[2024-07-12] MEDS: POTASS/SODIUM PHOSPHATE 1 PKT POWD.PACK PO SCH (08:15)
[2024-07-12] MEDS: KCL 20 MEQ/100 mL IVPB 20 MEQ/100 ML BAG IV SCH (10:03)
--- NOTE | 2024-07-12 10:23 | P.PN ---
Date of Service: 07/12/24 Subjective: Feeling better today, close to his normal self strength and energy returning denies any new / worsening problems afebrile Physical Exam: GEN: Alert, orientedx3, NAD CV: Regular rate and rhythm, no edema ABD: soft, nontender, nondistended MSK: Right AKA stump healing wound - no signs of infxn Neuro: Normal speech, normal affect Problem List: ROBIN Hypokalemia Diarrhea Recent infected Right AKA stump wound IDDM2 Hypertension Left adrenal mass iron deficiency anemia hypoalbuminemia ROBIN Hypokalemia Diarrhea on admission, presents per [facility] recommendation with abnormal blood work at [facility] - with low potassium and ROBIN. He reports some weakness, diarrhea over the last few days. Denies prior history of kidney issues. CT abdomen (07/09): Small b/l pleural effusions. Small pericardial effusion. Bladder wall thickening Mild urinary bladder wall thickening could be due to chronic outlet obstruction secondary to prostatomegaly. Hepatic Steatosis. Rocephin started on admission potassium 2.0, Creatinine 3.18 on admission ROBNI/Hypokalemia likely secondary to diarrhea/dehydration unclear exact etiology, and what his baseline renal fxn is reports recent admission to [facility] [place] for stump infxn ~1-2 months ago denies being told he has renal disease Denies any urinary obstructive symptoms/review of systems 07/09 - Chemistry was delayed due to machine being down this morning, resulted late morning with worsening creatinine Continue IV fluids Nephrology consulted check cpk 07/10 - [facility], unknown baseline unknown home meds he was taking renal fxn worse, despite IVF nephro following, workup expanded / pending serum cortisol result from yesterday - on higher side, check ACTH, may need further eval / dex suppression test has adrenal mass of unknown duration, 07/11 - diarrhea improved. pt feels better renal fxn worsening nephro following, awaiting further recs further studies ordered per nephro 07/12 - Feeling better overall. Renal fxn stable. Denies any new / worsening problems workup pending Recent infected Right AKA stump wound Per patient - last hospitalized at [facility] ~1 month ago for Right AKA wound infection. s/p antibiotics and antifungal treatment He was placed on long-term antifungal for right AKA wound. He was told diarrhea was secondary to medication however continues with diarrhea despite completing treatment. Reports he recently completed wound VAC therapy for right AKA wound this past week ~07/04 Request [facility] records. Continue local wound care. Pressure offloading. No evidence of active infection at this time 07/09 - Rocephin started on admission 07/11 - pt called home health nurse to confirm medication since we still haven't received med records from [facility] RN stated posaconazole 300mg three times/day for 3 months patient has taken it for ~1 month He states he last took it last Wednesday 07/12 - Leukocytosis resolved. IDDM2 accu-cheks, SSI confirm home meds Hypertension confirm home meds, restart as appropriate Left adrenal mass CT abd noted Large 5.0 cm left adrenal mass lesion with heterogeneous fat attenuation, likely lipid rich adenoma Patient states he has never been told about this mass before He also states he is sure he has had previous scans of his abdomen at the [facility] as noted above, further eval iron deficiency anemia iron studies consistent with iron deficiency anemia iron 15, tsat% 10.2. Code: Full Dispo: Home with HH ~2 days Time Spent Managing Pts Care (In Minutes): 45
--- NOTE | 2024-07-12 13:14 | RAD REPORT ---
EXAMINATION: US RENAL CLINICAL INDICATION: Acute chronic insufficiency. Chronic renal disease. TECHNIQUE: Real-time ultrasonography of the kidneys performed. COMPARISON: July 08, 2024 CT. FINDINGS: Right kidney measures 10 cm with 13 increased echotexture.. Left kidney measures 12 cm with increased echotexture. No hydronephrosis Mild anterior bladder wall thickening. 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 A subtle mass is another consideration..
--- NOTE | 2024-07-13 01:11 | PN ---
Date of Progress Note: 07/12/2024 Chief Complaint: Acute kidney injury, nonoliguric secondary to ATN. Renal function has not improved . The patient denies lower urinary tract symptoms. Denies nausea or vomiting. Physical Examination: Lungs: Clear to auscultation bilaterally. Heart: S1, S2. Abdomen: Soft. Extremities: Right above-knee amputation. Laboratory Data: BUN 30, creatinine 4.3, uric acid 4.1, calcium 7.7, phosphorus 2.6, albumin 1.4, co rrected calcium 9.7. Serum protein electrophoresis is pending. Serology is pending. The patient wa s found to have 2+ protein and workup is initiated for monoclonal gammopathy of unknown significance. Impression And Plan: 1. Acute kidney injury due to acute tubular necrosis. The patient is on IV fluids. Continue IV flui d hydration. Avoid nonsteroidal anti-inflammatory medication. Avoid contrast exposure. The patient may need renal biopsy to evaluate for decline in the renal function and evaluate for possible etiolo gy of acute kidney injury. 2. Iron deficiency anemia. The patient will continue current treatment and the plan is to monitor he moglobin. 3. Anemia. Serum protein electrophoresis is pending to rule out monoclonal gammopathy of unknown sig nificance. 4. Proteinuria, likely secondary to diabetic kidney disease. Workup is initiated to screen for any p ossible nephritis. 5. Hypokalemia. Supplementation as needed according to lab results. 6. Stump infection, antibiotic per primary team. EB/MODL Voice ID: [id number] Report ID: [id number]
[2024-07-13] MEDS: KCL 20 MEQ/100 mL IVPB 20 MEQ/100 ML BAG IV SCH ×2 (02:00→11:55)
[2024-07-13 05:59] LABS: Hematocrit 34.4 % (39.6-49.0); Hemoglobin 11.3 g/dL (13.6-17.9); MCH 27.1 pg (27.0-35.0); MCHC 32.8 g/dL (32.0-36.0); MCV 82.4 fL (80-100); MPV 7.3 fL (7.6-11.3); Platelets 456 thou/uL (152-406); RBC Red Blood Cell Count 4.17 M/uL (4.33-5.43); Red Cell Distribution Width 17.2 % (12.1-15.2)
[2024-07-13 06:38] LABS: Albumin 1.4 g/dL (3.4-5.0); Anion Gap 11.2 mEq/L (5.0-15.0); Magnesium 1.9 mg/dL (1.6-2.4); Phosphorus 3.1 mg/dL (2.5-4.9); Potassium 3.2 mEq/L (3.5-5.1)
[2024-07-13] MEDS: MAGNESIUM SULFATE 1 gm IVPB 1 GM/100 ML BAG IV ONE (08:02)
--- NOTE | 2024-07-13 09:06 | P.PN ---
Date of Service: 07/13/24 Subjective: feeling better overall denies any new problems. Not in any pain. good UOP, urinating without issues afebrile Physical Exam: GEN: Alert, orientedx3, NAD CV: Regular rate and rhythm, no edema ABD: soft, nontender, nondistended MSK: Right AKA stump healing wound, clean, no evidence of infection Neuro: Normal speech, normal affect Problem List: ROBIN Hypokalemia Diarrhea Recent infected Right AKA stump wound IDDM2 Hypertension Left adrenal mass iron deficiency anemia hypoalbuminemia ROBIN Hypokalemia Diarrhea on admission, presents per [facility] recommendation with abnormal blood work at [facility] - with low potassium and ROBIN. He reports some weakness, diarrhea over the last few days. Denies prior history of kidney issues. CT abdomen (07/09): Small b/l pleural effusions. Small pericardial effusion. Bladder wall thickening Mild urinary bladder wall thickening could be due to chronic outlet obstruction secondary to prostatomegaly. Hepatic Steatosis. Rocephin started on admission potassium 2.0, Creatinine 3.18 on admission ROBIN/Hypokalemia likely secondary to diarrhea/dehydration unclear exact etiology, and what his baseline renal fxn is reports recent admission to [facility] in [place] for stump infxn ~1-2 months ago denies being told he has renal disease Denies any urinary obstructive symptoms/review of systems 07/09 - Chemistry was delayed due to machine being down this morning, resulted late morning with worsening creatinine Continue IV fluids Nephrology consulted check cpk 07[facility]10 [facility] unknown baseline unknown home meds he was taking renal fxn worse, despite IVF nephro following, workup expanded / pending serum cortisol result from yesterday - on higher side, check ACTH, may need further eval / dex suppression test has adrenal mass of unknown duration, 07/11 - diarrhea improved. pt feels better renal fxn worsening nephro following, awaiting further recs further studies ordered per nephro 07/12 - Feeling better overall. Renal fxn stable. workup pending 07/13 - renal fxn plateauing. No new issues. Recent infected Right AKA stump wound Per patient - last hospitalized at [facility] ~1 month ago for Right AKA wound infection. s/p antibiotics and antifungal treatment He was placed on long-term antifungal for right AKA wound. He was told diarrhea was secondary to medication however continues with diarrhea despite completing treatment. Reports he recently completed wound VAC therapy for right AKA wound this past week ~07/04 Request [facility] records. Continue local wound care. Pressure offloading. No evidence of active infection at this time 07/09 - Rocephin started on admission 07/11 - pt called home health nurse to confirm medication since we still haven't received med records from [facility] RN stated posaconazole 300mg three times/day for 3 months patient has taken it for ~1 month He states he last took it last Wednesday 07/12 - Leukocytosis resolved. 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 Code: Full Dispo: Home with HH ~2 days Time Spent Managing Pts Care (In Minutes): 45
[2024-07-13 12:19] LABS: UR PROTEIN 128.3 mg/dL (<11.9); Urine Protein/Creatinine Ratio 4.42 ratio (<0.15)
[2024-07-13 12:23] LABS: UR PROTEIN 128.3 mg/dL (<11.9)
[2024-07-13] MEDS: POTASSIUM CL SA 10 MEQ TAB PO ONE (16:08)
--- NOTE | 2024-07-13 21:21 | PN ---
Date of Progress Note: 07/13/2024 Chief Complaint: Acute kidney injury, nonoliguric, secondary to acute tubular necrosis with superimp osed chronic kidney disease and diabetic kidney disease. Subjective: Renal function has not improved. The patient denies lower urinary tract symptoms. Zach es nausea and vomiting. There is no uremic symptomatology. Review of Systems: Denies complaints. Physical Examination: Lungs: Clear to auscultation bilaterally. Heart: S1, S2. Abdomen: Soft. Extremities: Right [id number] amputation. Impression And Plan: 1. Acute kidney injury due to acute tubular necrosis. The patient is on IV fluids to prevent hypovol emia. Continue IV fluids for hydration. Avoid nonsteroidal anti-inflammatory medication. Avoid con trast exposure. The patient may need renal biopsy to evaluate for decline in the renal function and evaluate for possible etiology of acute kidney injury. 2. Iron-deficiency anemia. The patient will continue current treatment. Monitor hemoglobin level. 3. Anemia. Serum protein electrophoresis is pending. To rule out monoclonal gammopathy of unknown s ignificance. 4. Proteinuria, likely secondary to diabetic kidney disease. Workup is initiated to screen for possi ble nephritis. 5. Hypokalemia. Supplementation as needed according to lab results. 6. Stump infection. Antibiotics per Primary team. EB/MODL Voice ID: [id number] Report ID: [id number]
[2024-07-13 22:15] LABS: Complement C3 129 mg/dL (82-185)
[2024-07-14 06:13] LABS: Albumin 1.5 g/dL (3.4-5.0); Anion Gap 9.6 mEq/L (5.0-15.0); Phosphorus 3.3 mg/dL (2.5-4.9); Potassium 3.6 mEq/L (3.5-5.1)
[2024-07-14] MEDS: POTASSIUM 25 MEQ EFFERV TAB PO ONE (06:36)
[2024-07-14] MEDS: Ringers Lactate 1,000 ML IV SCH (07:00)
--- NOTE | 2024-07-14 11:10 | P.PN ---
Date of Service: 07/14/24 Subjective: no events overnight breathing okay on room air regular BM yesterday Physical Exam: GEN: Alert, orientedx3, NAD CV: Regular rate and rhythm, no edema ABD: soft, nontender, nondistended MSK: Right AKA stump healing wound, clean, no evidence of infection Neuro: Normal speech, normal affect Problem List: ROBIN Hypokalemia Diarrhea Recent infected Right AKA stump wound IDDM2 Hypertension Left adrenal mass iron deficiency anemia hypoalbuminemia ROBIN Hypokalemia Diarrhea on admission, presents per [facility] recommendation with abnormal blood work at [facility] - with low potassium and ROBIN. He reports some weakness, diarrhea over the last few days. Denies prior history of kidney issues. CT abdomen (07/09): Small b/l pleural effusions. Small pericardial effusion. Bladder wall thickening Mild urinary bladder wall thickening could be due to chronic outlet obstruction secondary to prostatomegaly. Hepatic Steatosis. Rocephin started on admission potassium 2.0, Creatinine 3.18 on admission ROBIN/Hypokalemia likely secondary to diarrhea/dehydration unclear exact etiology, and what his baseline renal fxn is reports recent admission to [facility] in [place] for stump infxn ~1-2 months ago denies being told he has renal disease Denies any urinary obstructive symptoms/review of systems 07/09 - Chemistry was delayed due to machine being down this morning, resulted late morning with worsening creatinine Continue IV fluids Nephrology consulted [facility] baseline unknown home meds he was taking renal fxn worse, despite IVF nephro following, workup expanded / pending serum cortisol result from yesterday - on higher side, check ACTH, may need further eval / dex suppression test has adrenal mass of unknown duration, 07/11 - diarrhea improved. pt feels better renal fxn worsening nephro following, awaiting further recs further studies ordered per nephro 07/12 - Feeling better overall. Renal fxn stable. Rheumatoid factor neg. ELENO pending, immunofixation electrophoresis pending 07/13 - renal fxn plateauing. No new issues. 07/14 - Renal fxn stable. 24hr protein elevated 2309 PT consult nephro recommended [facility], RN to call again today Recent infected Right AKA stump wound Per patient - last hospitalized at [facility] ~1 month ago for Right AKA wound infection. s/p antibiotics and antifungal treatment He was placed on long-term antifungal for right AKA wound. He was told diarrhea was secondary to medication however continues with diarrhea despite completing treatment. Reports he recently completed wound VAC therapy for right AKA wound this past week ~07/04 Request [facility] records. Continue local wound care. Pressure offloading. No evidence of active infection at this time 07/09 - Rocephin started on admission 07/11 - pt called home health nurse to confirm medication since we still haven't received med records from [facility] RN stated posaconazole 300mg three times/day for 3 months patient has taken it for ~1 month He states he last took it last Wednesday 07/12 - Leukocytosis resolved. 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 Code: Full Dispo: Home with HH ~2 days Time Spent Managing Pts Care (In Minutes): 45
[2024-07-14 20:23] LABS: Anti-Double Strand DNA Antibod 2 IU/mL (<=4)
--- NOTE | 2024-07-14 21:16 | PN ---
Date of Progress Note: 07/14/2024 Chief Complaint: Acute kidney injury, nonoliguric, secondary to acute tubular necrosis with superimp osed chronic kidney disease, likely diabetic kidney disease associated with proteinuria. Review of Systems: The patient denies chest pain, palpitation. Physical Examination: Lungs: Clear to auscultation bilaterally. Heart: S1, S2. Abdomen: Soft. Extremities: Right [id number] amputation. Impression And Plan: 1. Acute kidney injury due to acute tubular necrosis. The patient is on IV fluids to prevent hypovol emia. Avoid nonsteroidal anti-inflammatory medication. Avoid contrast exposure. The patient may ne ed further workup for proteinuria and acute kidney injury. Serology was ordered and pending. Serum protein electrophoresis is pending. 2. Proteinuria, likely due to diabetic kidney disease. 3. Hypokalemia. Add supplementation as needed. 4. Stump infection. Antibiotics per Primary team. EB/MODL Voice ID: [id number] Report ID: [id number]
[2024-07-14] MEDS: HYDRALAZINE HCL 20 MG/ML VIAL IV PRN (21:20)
[2024-07-15 05:27] VITALS: BMI 26.5
[2024-07-15 07:42] LABS: Hematocrit 32.8 % (39.6-49.0); Hemoglobin 10.7 g/dL (13.6-17.9); MCH 26.7 pg (27.0-35.0); MCHC 32.7 g/dL (32.0-36.0); MCV 81.8 fL (80-100); MPV 7.6 fL (7.6-11.3); Platelets 476 thou/uL (152-406); RBC Red Blood Cell Count 4.01 M/uL (4.33-5.43); Red Cell Distribution Width 17.5 % (12.1-15.2)
[2024-07-15 07:57] LABS: Anion Gap 10.7 mEq/L (5.0-15.0); Potassium 3.7 mEq/L (3.5-5.1)
--- NOTE | 2024-07-15 10:51 | PN ---
Date of Progress Note: 07/15/2024 Subjective: The patient was admitted to the hospital with acute kidney injury, infected stump. The patient had nephrotic range of proteinuria. Kidney function worsening over the last few days, then c urrently plateaued. The patient is nonoliguric. No hyperkalemia. Physical Examination: Vital Signs: Blood pressure 156/77, pulse of 83, afebrile, the patient had good urine output, voidin g. Chest: Clear to auscultation. Heart: S1, S2 regular. Abdomen: Soft, nontender. Extremities: Right above-knee amputation. No edema. Neuro: Alert. No focality. No tremor. Laboratory Data: WBC 11.1, hemoglobin 10.7, platelet 476. Sodium 141, potassium 3.7, bicarb 19, BUN 45, creatinine 4.4, calcium 7.8, magnesium of 2, albumin 1.5, corrected calcium is 9.8. PC ratio 4. 4. Serology complement within normal limit. Anti-DNA negative. Hepatitis negative. Current Medications: The patient is on include hydralazine, IV fluid. Assessment And Plan: 1. Acute kidney injury secondary to toxic ATN, nephrotic range of proteinuria. No hyperkalemia. Mil d acidosis. I do not see the need to initiate any renal replacement therapy. I had long discussion with the patient regarding possible needing for kidney biopsy. The patient refused. I am going to melody gonzalez to monitor the patient. If kidney function improved tomorrow, hopefully the patient will be able to be released. 2. Hypokalemia. We will supplement. 3. Nephrotic range of proteinuria, possible secondary to diabetes. Workup still negative. Serum pro tein electrophoresis is still pending. We will follow up. 4. Iron deficiency anemia. I am going to start the patient on IV iron and we will follow up the arslan ent. 5. Diabetes, as by primary. 6. Stump infection as by primary. 7. Hypertension, controlled, not optimal. I am going to go ahead and add carvedilol for the patient and we will follow up. MA/MODL Voice ID: [id number] Report ID: [id number]
[2024-07-15] MEDS: carvediloL 6.25 MG TAB PO SCH (12:13)
[2024-07-15] MEDS: SOD FERRIC GLUC COMPLX/SUCROSE 250 MG in NA CHLORIDE 0.9% 250 ML IV SCH (12:13)
[2024-07-15 12:24] LABS: Abnormal Protein Band 1 REPORT; Albumin, (SPE) 1.7 g/dL (3.8-4.8); Alpha-1-Globulins 0.4 g/dL (0.2-0.3); Beta 1 Globulin 0.4 g/dL (0.4-0.6); Gamma Globulins 0.8 g/dL (0.8-1.7); INTERPRETATION REPORT; Total Protein 4.9 g/dL (6.1-8.1)
[2024-07-15 13:31] LABS: KAPPA LIGHT CHAIN, FREE SERUM 130.3 mg/L (3.3-19.4); LAMBDA LIGHT CHAIN, FREE SERUM 118.8 mg/L (5.7-26.3)
--- NOTE | 2024-07-15 14:05 | P.CNS ---
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 He has a history of chronic smoking of over 40 years 1.5 packs/day on average, range from 1 to 2 packs/day, but he quit about 5 years ago around the time he lost his right lower extremity above the knee. He denies any gross hematuria, dysuria, or significant obstructive LUTS. No significant irritative LUTS present either. AUA symptom score 1-2/35 He has a history of a prostate biopsy 5 to 6 years ago done at the [facility] in [place] that was reportedly benign for elevated PSA. No known drug allergies Past medical history: IDDM 2, hypertension Past surgical history: I&D of rectal abscess, right hand surgery, right AKA Family history: Paternal uncle and cousin with prostate cancer, but his father in his 80s and never had known prostate cancer Social history: with extensive smoking history as documented above Examination: Well-appearing, well-developed, well-nourished, no acute distress Alert, awake, oriented x 3 No dyspnea or sign of respiratory distress Comfortable and well-appearing Seated in a wheelchair eating lunch 07/09/2024 UA micro specimen #1 -2+ heme, <5 RBCs per hpf, 20-50 WBCs per hpf, 4+ glucose, 2+ protein; specimen #2 -4+ glucose, 1+ protein, <5 RBCs per hpf, <5 WBCs per hpf. Urine culture 10-100 K mixed carl 07/15/2024 WBC 11.1, hemoglobin/hematocrit 10.7/32.8, platelets 476, creatinine 4.41 with EGFR 14, CO2 19 07/08/2024 CT abdomen pelvis without contrast findings: 5.0 x 4.1 x 3.5 cm left adrenal mass lesion with heterogeneous fat attenuation, likely lipid rich adenoma. Left adrenal gland otherwise thickened. Right adrenal unremarkable. No nephrolithiasis or hydronephrosis noted within the kidneys. Bladder with mild wall thickening. Prostate is "enlarged". Assessment and recommendation: 68-year-old gentleman with IDDM 2, hypertension, CKD stage 4, extensive [id number] smoking history, and history of right AKA in 2020 making him wheelchair-bound with bladder thickening observed on imaging in the absence of gross or microscopic hematuria or bothersome LUTS, but history of prostate biopsy in 2020 for elevated PSA in the setting of an extended paternal family history of prostate cancer and likely left adrenal myelolipoma. -Recommend cystoscopic evaluation done as an outpatient within the next couple of months - PSA prior to outpatient cystoscopy -MRI may eventually be beneficial to appropriately characterize the left adrenal mass without the use of IV contrast, prohibitive b/c of his CKD with eGFR<30 -The patient expresses that he receives his care at the [facility], where the cost is managed. He may elect to have this follow-up done there instead of here, but I counseled him that occasionally, the [place] will pay for services performed in the community if a referral is entered from his [place] doctors. This was at his discretion. Allergies No Known Allergies Allergy (Verified 02/14/12 01:59) Home medications list reviewed: Yes Home Medications: Metformin HCl [Metformin HCl ER] 1,000 mg PO BID 10/25/18 Insulin Glargine Human [Lantus*] 20 units SQ BID #1 vial 10/27/18 Empagliflozin [Jardiance] 25 mg PO DAILY 07/09/24 Glipizide [Glipizide ER] 2 tab PO DAILY 07/09/24 Rosuvastatin Calcium 40 mg PO DAILY 07/09/24 Sitagliptin [Zituvio] 25 mg PO DAILY 07/09/24 - Past Medical/Surgical History Diabetic: Yes -: Diabetes mellitus type 2, non-insulin dependent -: Tobacco abuse -: Hypertension -: I and D of rectal abscess -: Surgery to the right hand Psychosocial/ Personal History: Patient is . Patient lives with son. He is originally from [place]. - Social History Smoking Status: Former smoker Alcohol use: Yes CD- Drugs: No Caffeine use: Yes Physical Examination Temp Pulse Resp BP Pulse Ox 97.8 F 82 18 154/71 H 98 07/15/24 12:00 07/15/24 12:13 07/15/24 12:00 07/15/24 12:13 07/15/24 12:00 - Problems (1) Bladder wall thickening Current Visit: Yes Status: Acute (2) History of elevated PSA Current Visit: Yes Status: Acute (3) Family history of prostate cancer Current Visit: Yes Status: Acute (4) Myelolipoma of left adrenal gland Current Visit: Yes Status: Acute Conclusions/Impression: see A&P in HPI Critical Care: No Time Spent Managing Pts care (In Minutes): 45
--- NOTE | 2024-07-15 14:40 | P.PN ---
Subjective Date of Service: 07/15/24 Chief Complaint: bladder thickening Patient denies any new complaint. He denies any dysuria or increased urinary frequency. He denies any hematuria. He denies any pain. He denies any loss of appetite and states he is eating well. He denies any diarrhea. Physical Examination - Vital Signs Temperature: 97.8 F Blood Pressure: 154/71 Pulse: 82 Respirations: 18 Pulse Ox (%): 98 Assessment And Plan - Plan Problem List: ROBIN Hypokalemia Diarrhea Recent infected Right AKA stump wound IDDM2 Hypertension Left adrenal mass iron deficiency anemia hypoalbuminemia ROBIN Hypokalemia Diarrhea on admission, presents per [place] recommendation with abnormal blood work at [place] - with low potassium and ROBIN. He reports some weakness, diarrhea over the last few days. Denies prior history of kidney issues. CT abdomen (07/09): Small b/l pleural effusions. Small pericardial effusion. Bladder wall thickening Mild urinary bladder wall thickening could be due to chronic outlet obstruction secondary to prostatomegaly. Hepatic Steatosis. Rocephin started on admission potassium 2.0, Creatinine 3.18 on admission ROBIN/Hypokalemia likely secondary to diarrhea/dehydration unclear exact etiology, and what his baseline renal fxn is reports recent admission to [place] in [place] for stump infxn ~1-2 months ago denies being told he has renal disease Denies any urinary obstructive symptoms/review of systems 07/09 - Chemistry was delayed due to machine being down this morning, resulted late morning with worsening creatinine Continue IV fluids Nephrology consulted [facility], [facility] baseline unknown home meds he was taking renal fxn worse, despite IVF nephro following, workup expanded / pending serum cortisol result from yesterday - on higher side, check ACTH, may need further eval / dex suppression test has adrenal mass of unknown duration, 07/11 - diarrhea improved. pt feels better renal fxn worsening nephro following, awaiting further recs further studies ordered per nephro 07/12 - Feeling better overall. Renal fxn stable. Rheumatoid factor neg. ELENO pending, immunofixation electrophoresis pending 07/13 - renal fxn plateauing. No new issues. 07/14 - Renal fxn stable. 24hr protein elevated 2309 PT consult nephro recommended IV[facility], RN to call again today Recent infected Right AKA stump wound Per patient - last hospitalized at [facility] ~1 month ago for Right AKA wound infection. s/p antibiotics and antifungal treatment He was placed on long-term antifungal for right AKA wound. He was told diarrhea was secondary to medication however continues with diarrhea despite completing treatment. Reports he recently completed wound VAC therapy for right AKA wound this past week ~07/04 Request [facility] records. Continue local wound care. Pressure offloading. No evidence of active infection at this time 07/09 - Rocephin started on admission 07/11 - pt called home health nurse to confirm medication since we still haven't received med records from [place] RN stated posaconazole 300mg three times/day for 3 months patient has taken it for ~1 month He states he last took it last Wednesday 07/12 - Leukocytosis resolved. IDDM2 accu-cheks, SSI confirm home meds Hypertension confirm home meds, restart as appropriate Left adrenal mass CT abd noted Large 5.0 cm left adrenal mass lesion with heterogeneous fat attenuation, likely lipid rich adenoma Patient states he has never been told about this mass before He also states he is sure he has had previous scans of his abdomen at the [place] as noted above, further eval iron deficiency anemia iron studies consistent with iron deficiency anemia iron 15, tsat% 10.2. 07/15 Creatinine plateaued up to 4.4 and trended down from yesterday. Nephrology is following and managing. Urology Dr. Pandey input appreciated. Workup for thickened bladder as outpatient. Patient prefers further workup of the adrenal mass to be done in the [place] clinic. Local wound care for the right AKA stump wound. Insulin sliding scale for glucose management. Monitor and replace electrolytes as needed. Code: Full Dispo: Home with HH ~2 days
[2024-07-15 20:18] LABS: Immunofixation Electrophoresis Normal pattern.
[2024-07-16 05:11] LABS: Albumin 1.6 g/dL (3.4-5.0); Anion Gap 10.5 mEq/L (5.0-15.0); Phosphorus 3.6 mg/dL (2.5-4.9); Potassium 3.5 mEq/L (3.5-5.1)
--- NOTE | 2024-07-16 12:07 | PN ---
Date of Progress Note: 07/16/2024 Subjective: The patient was admitted with a stump infection with acute kidney injury. Kidney functi on today plateaued. Workup showed nephrotic range of proteinuria. The patient's kidney function cou ple of months ago was around 1.5. The patient had long discussion with the patient regarding the nee d for kidney biopsy. The patient declined. Physical Examination: Vital Signs: Blood pressure 156/66, pulse of 72. Chest: Clear to auscultation. Heart: S1, S2 regular. Abdomen: Soft, nontender. Extremities: Right above-knee amputation. Laboratory Data: Hemoglobin 10.7. Sodium 141, potassium 3.5, bicarb 21, BUN 46, creatinine 4.2 tren ding down, calcium 8.2, phosphorus 3.6. Current Medications: The patient is on include carvedilol 6.25, IV iron, Zofran. Assessment And Plan: 1. Acute kidney injury secondary to toxic ATN secondary to unknown medication the patient received du ring his treatment for fungus infection. I am going to continue to monitor the patient. If kidney f unction continue to improve tomorrow, the patient okay from the renal standpoint for discharge hermes hart. 2. Hypertension, controlled, optimal. Keep holding any THOM inhibitor or ARB for the time being. 3. Iron deficiency anemia. Continue IV iron. 4. 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 Workup negative includi ng serum protein electrophoresis. 5. Diabetes, as by primary. 6. Stump infection, status post treatment, resolved. 7. Hypertension, better controlled today. I am going to continue current treatment and we will follo casie up. SHEA Voice ID: [id number] Report ID: [id number]
--- NOTE | 2024-07-16 15:10 | P.PN ---
Subjective Date of Service: 07/16/24 Chief Complaint: bladder thickening Patient denies any new complaint and desires to go home. He denies any pain. He denies any diarrhea. Physical Examination - Vital Signs Temperature: 97.6 F Blood Pressure: 178/72 Pulse: 77 Respirations: 18 Pulse Ox (%): 95 Assessment And Plan - Plan Problem List: ROBIN Hypokalemia Diarrhea Recent infected Right AKA stump wound IDDM2 Hypertension Left adrenal mass iron deficiency anemia hypoalbuminemia ROBIN Hypokalemia Diarrhea on admission, presents per [place] recommendation with abnormal blood work at [place] - with low potassium and ROBIN. He reports some weakness, diarrhea over the last few days. Denies prior history of kidney issues. CT abdomen (07/09): Small b/l pleural effusions. Small pericardial effusion. Bladder wall thickening Mild urinary bladder wall thickening could be due to chronic outlet obstruction secondary to prostatomegaly. Hepatic Steatosis. Rocephin started on admission potassium 2.0, Creatinine 3.18 on admission ROBIN/Hypokalemia likely secondary to diarrhea/dehydration unclear exact etiology, and what his baseline renal fxn is reports recent admission to [place] in [place] stump infxn ~1-2 months ago denies being told he has renal disease Denies any urinary obstructive symptoms/review of systems 07/09 - Chemistry was delayed due to machine being down this morning, resulted late morning with worsening creatinine Continue IV fluids Nephrology consulted 07/10 - [facility], unknown baseline unknown home meds he was taking renal fxn worse, despite IVF nephro following, workup expanded / pending serum cortisol result from yesterday - on higher side, check ACTH, may need further eval / dex suppression test has adrenal mass of unknown duration, 07/11 - diarrhea improved. pt feels better renal fxn worsening nephro following, awaiting further recs further studies ordered per nephro 07/12 - Feeling better overall. Renal fxn stable. Rheumatoid factor neg. ELENO pending, immunofixation electrophoresis pending 07/13 - renal fxn plateauing. No new issues. 07/14 - Renal fxn stable. 24hr protein elevated 2309 PT consult nephro recommended IVF still no records from [place], RN to call again today Recent infected Right AKA stump wound Per patient - last hospitalized at [facility] ~1 month ago for Right AKA wound infection. s/p antibiotics and antifungal treatment He was placed on long-term antifungal for right AKA wound. He was told diarrhea was secondary to medication however continues with diarrhea despite completing treatment. Reports he recently completed wound VAC therapy for right AKA wound this past week ~07/04 Request [facility] records. Continue local wound care. Pressure offloading. No evidence of active infection at this time 07/09 - Rocephin started on admission 07/11 - pt called home health nurse to confirm medication since we still haven't received med records from [place] RN stated posaconazole 300mg three times/day for 3 months patient has taken it for ~1 month He states he last took it last Wednesday 07/12 - Leukocytosis resolved. IDDM2 accu-cheks, SSI confirm home meds Hypertension confirm home meds, restart as appropriate Left adrenal mass CT abd noted Large 5.0 cm left adrenal mass lesion with heterogeneous fat attenuation, likely lipid rich adenoma Patient states he has never been told about this mass before He also states he is sure he has had previous scans of his abdomen at the [place] as noted above, further eval iron deficiency anemia iron studies consistent with iron deficiency anemia iron 15, tsat% 10.2. 07/15 Creatinine plateaued up to 4.4 and trended down from yesterday. Nephrology is following and managing. Urology Dr. Pandey input appreciated. Workup for thickened bladder as outpatient. Patient prefers further workup of the adrenal mass to be done in the [place] clinic. Local wound care for the right AKA stump wound. Insulin sliding scale for glucose management. Monitor and replace electrolytes as needed. 07/16 Patient creatinine trended down slightly to 4.2. Patient reiterates that he wants further workup regarding the kidney failure and adrenal mass to be done at the [place] clinic. Nephrology consult appreciated. Continue to trend renal function Oral rehydration encouraged. Nephrology is managing fluids. Code: Full Dispo: Home with
[2024-07-16 23:16] VITALS: O2SAT 98
[2024-07-17 07:14] LABS: Anti-Nuclear Antibody Screen Negative (Negative)
[2024-07-17 07:28] LABS: Absolute Basophils 0.1 K/uL (0-0.5); Absolute Eosinophils 0.1 K/uL (0-0.5); Absolute Lymphocytes (CBC) 1.4 K/uL (0.7-4.9); Basophils % 0.7 % (0-1.3); Eosinophils % 1.2 % (0-4.4); Hematocrit 30.8 % (39.6-49.0); Hemoglobin 10.2 g/dL (13.6-17.9); MCH 27.1 pg (27.0-35.0); MCHC 33.1 g/dL (32.0-36.0); MCV 81.9 fL (80-100); MPV 7.5 fL (7.6-11.3); Monocytes % 10.5 % (3.3-12.3); Neutrophils % 72.6 % (41.7-73.7); Platelets 457 thou/uL (152-406); RBC Red Blood Cell Count 3.76 M/uL (4.33-5.43); Red Cell Distribution Width 17.9 % (12.1-15.2)
[2024-07-17 07:37] LABS: Albumin 1.7 g/dL (3.4-5.0); Anion Gap 11.6 mEq/L (5.0-15.0); Phosphorus 3.9 mg/dL (2.5-4.9); Potassium 3.6 mEq/L (3.5-5.1)
[2024-07-17] MEDS: POTASSIUM 25 MEQ EFFERV TAB PO ONE ×2 (10:56→11:45)
[2024-07-17 12:05] VITALS: BP 140/62; TEMP 98
--- NOTE | 2024-07-17 13:18 | PN ---
Date of Progress Note: 07/17/2024 Subjective: The patient was admitted to the hospital with acute kidney injury stump infection. The patient has acute kidney injury with nephrotic range of proteinuria secondary to acute ATN. The arslan ent declined any kidney biopsy or any procedure. The patient was monitored carefully. Kidney functi on started improving. Physical Examination: Vital Signs: Blood pressure 140/62, pulse of 68. Chest: Clear to auscultation. Heart: S1, S2. Regular. Abdomen: Soft, nontender. Extremities: Right above-knee amputation. Laboratory Data: WBC 9.6, hemoglobin 10.2. Sodium 142, potassium 3.6, bicarb 21, BUN 48, creatinine 4, GFR of 15, calcium 7.8, phosphorus 3.9, albumin 1.7. Current Medications: The patient is on include IV iron, carvedilol 6.25, hydralazine, Zofran. Assessment And Plan: 1. Acute kidney injury secondary to poor perfusion, ATN, normal size kidney, nephrotic range of prote inuria, creatinine improving, kidney function improving. I do not see the need for renal replacement therapy. The patient can be discharged to follow up in the office in 2 to 3 weeks. Keep holding an y THOM inhibitor or ARB. 2. Nephrotic range proteinuria, mostly secondary to diabetes. The patient's serum protein electropho resis was within normal limit. Followup serology was negative. We will continue to monitor as outpa tient, mostly secondary to diabetes. We will consider rechallenging with THOM inhibitor or ARB as out patient after kidney function improved. 3. Hypokalemia. No need for supplement for the time being. 4. Hypertension, controlled, optimal. Continue current treatment. The patient cleared from the renal standpoint for discharge planning. Follow up in the office in 2 t o 3 weeks. SYD/SAMEERA Voice ID: [id number] Report ID: [id number]
--- NOTE | 2024-07-17 14:00 | P.DS ---
Admission Date: 07/09/24 Discharge Date: 07/17/24 Disposition: ROUTINE DISCHARGE Discharge Condition: FAIR Reason for Admission: bladder thickening Brief History of Present Illness: 68-year-old male with a past medical history of diabetes, hypertension, right AKA, presenting with diarrhea for 30 days. He states he was undergoing treatment of his right AKA and was placed on antibiotics as well as antifungals. He was placed on long-term antimicrobials and was told that this was the cause of his diarrhea. He stated despite being off antimicrobials he continued to have diarrhea. He recently completed wound VAC therapy for the right AKA wound which is now healed. Patient was evaluated in the emergency department and noted to have acute kidney injury. He was admitted for further management. Hospital Course: Problem List: ROBIN Hypokalemia Diarrhea Recent infected Right AKA stump wound IDDM2 Hypertension Left adrenal mass iron deficiency anemia hypoalbuminemia The following medical problems addressed during the hospital stay: ROBIN Hypokalemia Diarrhea on admission, presents per [facility] recommendation with abnormal blood work at [facility] - with low potassium and ROBIN. He reports some weakness, diarrhea over the last few days. He denied prior history of kidney issues. CT abdomen (07/09): Small b/l pleural effusions. Small pericardial effusion. Bl adder wall thickening Mild urinary bladder wall thickening could be due to chronic outlet obstruction secondary to prostatomegaly. Hepatic Steatosis. IV Rocephin started on admission Patient retaining IV fluid and nephrology consulted to evaluate. Patient was evaluated by Dr. Lozoya Serum creatinine trended up to 4.58 and then started trending down. His diarrhea improved and resolved during the hospital stay. Patient is states he prefers to continue further kidney workup at the [facility] and requested to be discharged. Recent infected Right AKA stump wound Per patient - last hospitalized at [facility] ~1 month ago for Right AKA wound infection. s/p antibiotics and antifungal treatment He was placed on long-term antifungal for right AKA wound. He was told diarrhea was secondary to medication however continues with diarrhea despite completing treatment. Patient treated with IV Rocephin and Diflucan. Leukocytosis resolved. Antibiotics discontinued. IDDM2 accu-cheks, SSI Treated with insulin sliding scale. Home dose Lantus insulin and Jardiance resumed on discharge. Metformin and glipizide on hold due to significantly impaired renal function and high risk for hypoglycemia with glipizide. Hypertension Continued home medications Left adrenal mass CT abd noted Large 5.0 cm left adrenal mass lesion with heterogeneous fat attenuation, likely lipid rich adenoma Patient stated he would like to follow-up with the [facility] for further evaluation and management. Iron deficiency anemia Nephrology treated iron deficiency with iron infusion. Oral iron supplementation. Follow-up with nephrology as outpatient. Patient currently has no complaint, he is tolerating diet, no diarrhea and his vitals are stable. He is able to transfer to his wheelchair without difficulty. Patient is discharged according to his request. He stated he has made arrangeme nt to follow-up with the [facility]. Vital Signs/Physical Exam: Temp Pulse Resp BP Pulse Ox 98 F 68 16 140/62 98 07/17/24 12:00 07/17/24 12:00 07/17/24 12:00 07/17/24 12:00 07/17/24 12:00 General: Alert, In no apparent distress, Oriented x3 HEENT: Mucous membr. moist/pink Neck: Supple, JVD not distended Respiratory: Clear to auscultation bilaterally, Normal air movement Cardiovascular: No edema, Regular rate/rhythm, Normal S1 S2 Gastrointestinal: Soft and benign, Non-distended Musculoskeletal: No swelling Integumentary: No cyanosis Neurological: Normal strength at 5/5 x4 extr Laboratory Data at Discharge: WBC 9.60 thou/uL (4.3-10.9) 07/17/24 07:10 Hgb 10.2 g/dL (13.6-17.9) L 07/17/24 07:10 Hct 30.8 % (39.6-49.0) L 07/17/24 07:10 Plt Count 457 thou/uL (152-406) H 07/17/24 07:10 Sodium 142 mEq/L (136-145) 07/17/24 07:10 Potassium 3.6 mEq/L (3.5-5.1) 07/17/24 07:10 BUN 48 mg/dL (7-18) H 07/17/24 07:10 Creatinine 4.04 mg/dL (0.70-1.30) H 07/17/24 07:10 Glucose 169 mg/dL (74-106) H 07/17/24 07:10 Uric Acid 4.1 mg/dL (3.5-7.2) 07/10/24 07:34 Phosphorus 3.9 mg/dL (2.5-4.9) 07/17/24 07:10 Magnesium 2.0 mg/dL (1.6-2.4) 07/15/24 07:23 Total Bilirubin 0.4 mg/dL (0.2-1.0) 07/10/24 07:34 AST 33 U/L (15-37) 07/10/24 07:34 ALT 20 U/L (16-61) 07/10/24 07:34 Alkaline Phosphatase 229 U/L (45-117) H 07/10/24 07:34 Lipase 29 U/L (13-75) 07/08/24 22:35 Home Medications: Insulin Glargine Human [Lantus*] 20 units SQ BID #1 vial 10/27/18 Empagliflozin [Jardiance] 25 mg PO DAILY 07/09/24 Rosuvastatin Calcium 40 mg PO DAILY 07/09/24 Sitagliptin [Zituvio] 25 mg PO DAILY 07/09/24 carvediloL [Coreg*] 6.25 mg PO BID #60 tab 07/17/24 New Medications: carvediloL [Coreg*] 6.25 mg PO BID #60 tab Diet: ADA Activity: Ad hi Followup: Mary Lozoya MD [ACTIVE - CAN ADMIT] - (2 to 3 weeks.) [facility] [Primary Care Provider] - 1 Week Time spent managing pt's care (in minutes): 36
[2024-07-17 20:36] LABS: C-ANCA Anti-Proteinase 3 <1.0 AI (<1.0); P-ANCA Anti-Myeloperoxidase Ab <1.0 AI (<1.0)
== END 2024-07-17 15:21 | disposition home or self-care (01) | DRG 684 ==
LOC: ER 21:11 → ERHOLD 07-09 04:54 → 4TH 07-09 05:07
PROVIDERS: ADMIT Family Medicine; ATTEND Internal Medicine
DX: N17.0 Acute kidney failure with tubular necrosis (principal); E87.6 Hypokalemia; N18.4 Chronic kidney disease, stage 4 (severe); I12.9 Hypertensive chronic kidney disease with stage 1 through stage 4 chronic kidney disease, or unspecified chronic kidney disease; E11.22 Type 2 diabetes mellitus with diabetic chronic kidney disease; E11.40 Type 2 diabetes mellitus with diabetic neuropathy, unspecified; D63.1 Anemia in chronic kidney disease; E86.0 Dehydration; E27.9 Disorder of adrenal gland, unspecified; D50.9 Iron deficiency anemia, unspecified; E78.00 Pure hypercholesterolemia, unspecified; E83.39 Other disorders of phosphorus metabolism; E83.42 Hypomagnesemia; E88.09 Other disorders of plasma-protein metabolism, not elsewhere classified; Z79.4 Long term (current) use of insulin; Z79.84 Long term (current) use of oral hypoglycemic drugs; Z89.521 Acquired absence of right knee; Z79.899 Other long term (current) drug therapy; Z89.611 Acquired absence of right leg above knee; Z87.891 Personal history of nicotine dependence
CPT/HCPCS: 36415; 71045; 74176; 76770; 80048; 80053; 80069; 81001; 82024; 82088; 82533; 82550; 82570; 82607; 82728; 82947; 83520; 83540; 83690; 83735; 83935; 83970; 84100; 84132; 84156; 84165; 84300; 84439; 84443; 84466; 84484; 84550; 85025; 85027; 85044; 86021; 86038; 86160; 86225; 86334; 86430; 86803; 87086; 87088; 93005; 96365; 96366; 97116; 97161; 97530; 97542; 99285; J0360; J0696; J1815; J2916; J3475; J3480; J7030; J7040; J7050; J7120